=== PATIENT | female | born 1995 | race Two or more races ===

== ENCOUNTER → 2023-03-30 | Outpatient (CLI) | payer BC, SELFPAY ==
[2023-04-03 07:12] LABS: Chlamydia By Nucleic Acid AMP Negative (Negative); Gonococcus By Nucleic Acid AMP Negative (Negative)
[2023-04-04 14:19] LABS: HPV APTIMA, High Risk Negative (Negative)
== END | disposition home or self-care (01) ==
PROVIDERS: Referring Provider Obstetrics & Gynecology; Visit Provider Obstetrics & Gynecology
DX: Z34.90 Encounter for supervision of normal pregnancy, unspecified, unspecified trimester (principal); Z3A.00 Weeks of gestation of pregnancy not specified
CPT/HCPCS: 87086; 87088; 87491; 87591; 87624; 88175; G0145

== ENCOUNTER → 2023-04-12 | Outpatient (CLI) | payer BC, SELFPAY ==
[2023-04-12 09:51] LABS: Absolute Lymphocyte Count 2.03 X10^3/uL (0.83-4.51); Absolute Neutrophil Count 6.4 X10^3/uL (2.0-7.7); Basophil# 0.03 X10^3/uL; Basophil% 0.3 % (0-1); Eosinophil# 0.08 X10^3/uL; Eosinophils% 0.9 % (0-5); Hematocrit 40.1 % (37-47); Hemoglobin 12.6 g/dL (12.0-15.0); Lymphocyte # 2.03 X10^3/ul (0.83-4.51); Lymphocyte % 22.3 % (19-41); Mean Corp Hgb Conc 31.4 g/dL (32-36); Mean Corpuscular Volume 79.6 fL (81-99); Monocyte# 0.52 X10^3/uL; Monocyte% 5.7 % (0-10); NRBC Flagged by Analyzer 0 % (0-5); Neutrophil # 6.39 X10^3/uL (2.7-7.7); Neutrophil % 70.3 % (47-70); Platelet Count 208 K/mm3 (150-450); RBC Distribution Width CV 14.7 % (11.6-14.6); RBC Distribution Width SD 42.6 fl (35.1-43.9); Red Blood Count 5.04 M/mm3 (4.2-5.4); White Blood Count 9.1 K/mm3 (4.4-11.0)
[2023-04-12 10:03] LABS: Glucose Challenge Gest 1H 50g 169 mg/dL (70-140)
[2023-04-12 10:41] LABS: HIV - WCH Non-Reactive (Nonreactive); Hepatitis B Surface Antigen Non-Reactive (Nonreactive); Hepatitis C Antibody Non-Reactive (Nonreactive); NATERA MAILED SPECIMEN; Rubella IgG Reactive (Nonreactive); Syphilis Antibodies Non-reactive
== END | disposition home or self-care (01) ==
LOC: PAVLAB 09:22
PROVIDERS: Referring Provider Obstetrics & Gynecology; Visit Provider Obstetrics & Gynecology
DX: Z34.81 Encounter for supervision of other normal pregnancy, first trimester (principal)
CPT/HCPCS: 36415; 82950; 85025; 86703; 86762; 86780; 86803; 86850; 86900; 86901; 87340

== ENCOUNTER → 2023-04-19 | Outpatient (CLI) | payer BC, SELFPAY ==
[2023-04-19 08:49] LABS: Glucose GTT-Gestation. Fasting 98 mg/dL (<105)
[2023-04-19 09:03] LABS: Glucose GTT-Gestational 1 Hr 153 mg/dL (<190)
[2023-04-19 10:02] LABS: Glucose GTT-Gestational 2 Hr 182 mg/dL (<165)
[2023-04-19 10:49] LABS: Glucose GTT-Gestational 3 Hr 151 L (<145)
== END | disposition home or self-care (01) ==
PROVIDERS: Referring Provider Nurse Practitioner Women's Health; Visit Provider Nurse Practitioner Women's Health
DX: Z13.1 Encounter for screening for diabetes mellitus (principal)
CPT/HCPCS: 36415; 82951; 82952

== ENCOUNTER 2023-05-10 13:30 | Outpatient (RCR) | payer BC, SELFPAY | END 2023-05-11 23:59 | LOC: DC 13:30 | PROVIDERS: Referring Provider Nurse Practitioner Women's Health; Visit Provider Nurse Practitioner Women's Health | DX: Z71.3 Dietary counseling and surveillance (principal); O24.419 Gestational diabetes mellitus in pregnancy, unspecified control | CPT/HCPCS: 97802; 97803 ==

== ENCOUNTER 2023-05-25 14:07 | Outpatient (RCR) | payer BC, SELFPAY | END 2023-06-10 23:59 | LOC: DC 14:07 | PROVIDERS: Referring Provider Nurse Practitioner Women's Health; Visit Provider Nurse Practitioner Women's Health | DX: O24.419 Gestational diabetes mellitus in pregnancy, unspecified control (principal); O99.210 Obesity complicating pregnancy, unspecified trimester; E66.01 Morbid (severe) obesity due to excess calories | CPT/HCPCS: 97803 ==

== ENCOUNTER → 2023-08-16 | Outpatient (CLI) | payer OTHER, SELFPAY ==
[2023-08-16 11:32] LABS: Absolute Lymphocyte Count 1.89 X10^3/uL (0.83-4.51); Absolute Neutrophil Count 8.6 X10^3/uL (2.0-7.7); Basophil# 0.03 X10^3/uL; Basophil% 0.3 % (0-1); Eosinophil# 0.06 X10^3/uL; Eosinophils% 0.5 % (0-5); Hematocrit 36.3 % (37-47); Hemoglobin 11.3 g/dL (12.0-15.0); Lymphocyte # 1.89 X10^3/ul (0.83-4.51); Lymphocyte % 16.9 % (19-41); Mean Corp Hgb Conc 31.1 g/dL (32-36); Mean Corpuscular Hgb 24.6 pg (27.0-32.0); Mean Corpuscular Volume 78.9 fL (81-99); Mean Platelet Vol. 10.7 fl (6.2-12.0); Monocyte# 0.58 X10^3/uL; Monocyte% 5.2 % (0-10); NRBC Flagged by Analyzer 0 % (0-5); Neutrophil # 8.56 X10^3/uL (2.7-7.7); Neutrophil % 76.4 % (47-70); Platelet Count 187 K/mm3 (150-450); RBC Distribution Width CV 13.9 % (11.6-14.6); RBC Distribution Width SD 39.6 fl (35.1-43.9); White Blood Count 11.2 K/mm3 (4.4-11.0)
[2023-08-16 12:17] LABS: HIV - WCH Non-Reactive (Nonreactive); Syphilis Antibodies Non-reactive
== END | disposition home or self-care (01) ==
PROVIDERS: Referring Provider Obstetrics & Gynecology; Visit Provider Obstetrics & Gynecology
DX: O09.90 Supervision of high risk pregnancy, unspecified, unspecified trimester (principal); Z3A.00 Weeks of gestation of pregnancy not specified
CPT/HCPCS: 36415; 85025; 86703; 86780

== ENCOUNTER → 2023-09-13 | Outpatient (CLI) | payer OTHER, MEDICAID, SELFPAY ==
[2023-09-13 14:19] LABS: Protein, Urine (Random) 29.5 mg/dL (<11.9); Protein:Creat Ratio 238 mg/g CRE (0-200)
[2023-09-13 14:42] LABS: Absolute Lymphocyte Count 1.96 X10^3/uL (0.83-4.51); Absolute Neutrophil Count 8.6 X10^3/uL (2.0-7.7); Basophil# 0.04 X10^3/uL; Basophil% 0.3 % (0-1); Eosinophil# 0.07 X10^3/uL; Eosinophils% 0.6 % (0-5); Hematocrit 34.8 % (37-47); Hemoglobin 10.4 g/dL (12.0-15.0); Lymphocyte # 1.96 X10^3/ul (0.83-4.51); Lymphocyte % 17.1 % (19-41); Mean Corp Hgb Conc 29.9 g/dL (32-36); Mean Corpuscular Hgb 23.1 pg (27.0-32.0); Mean Corpuscular Volume 77.3 fL (81-99); Mean Platelet Vol. 10.9 fl (6.2-12.0); Monocyte# 0.68 X10^3/uL; Monocyte% 5.9 % (0-10); NRBC Flagged by Analyzer 0 % (0-5); Neutrophil # 8.62 X10^3/uL (2.7-7.7); Neutrophil % 75.1 % (47-70); Platelet Count 178 K/mm3 (150-450); RBC Distribution Width CV 14.1 % (11.6-14.6); RBC Distribution Width SD 39.7 fl (35.1-43.9); White Blood Count 11.5 K/mm3 (4.4-11.0)
[2023-09-13 14:57] LABS: ALB/GLOB Ratio 0.6 RATIO (0.9-2.4); AST(SGOT) 9 U/L (15-37); Alanine Aminotransfer ALT/SGPT 13 U/L (13-56); Albumin, Serum 2.5 g/dL (3.2-5.0); Alkaline Phosphatase 113 U/L (45-117); Anion Gap 9 (5-15); BUN 8 mg/dL (7-18); BUN/Creat Ratio 13.3 RATIO (10-20); Calcium,Total 8.5 mg/dL (8.5-10.1); Chloride 108 mmol/L (98-107); EST Glomerular Filtration Rate 124 mL/min (>60); Est Glom Filt Rate - Afr Amer 150 mL/min (>60); Globulin 4.1 g/dL (2.2-4.2); Glucose 119 mg/dL (74-106); Potassium 4.1 mmol/L (3.5-5.1); Protein, Total 6.6 g/dL (6.4-8.2); Sodium Level 141 mmol/L (136-145)
== END | disposition home or self-care (01) ==
PROVIDERS: Referring Provider Nurse Practitioner Women's Health; Visit Provider Nurse Practitioner Women's Health
DX: Z34.90 Encounter for supervision of normal pregnancy, unspecified, unspecified trimester (principal)
CPT/HCPCS: 36415; 80053; 82570; 84156; 85025

== ENCOUNTER → 2023-09-18 | Outpatient (CLI) | payer MEDICAID, SELFPAY ==
--- NOTE | 2023-09-18 09:43 | US_ITS ---
EXAM: US SECOND OR THIRD TRIMESTER , TRANSABDOMINAL CLINICAL INDICATION: gestational diabetes -- polyhydramnios at 30 weeks TECHNIQUE: Transabdominal obstetrical ultrasound of the maternal pelvis and a second or third trimester with image documentation. COMPARISON: No relevant prior studies available. FINDINGS: FETUS: Single fetus. HEART RATE: cardiac rate is 136 bpm. PRESENTATION: Transverse lie and variable presentation. PLACENTA: Anterior placenta. No placenta previa. No abruption. AMNIOTIC FLUID: Amniotic fluid index is 14 cm. BIOMETRICS GESTATIONAL AGE: Estimated gestational age by measurements is 34 weeks 4 days. Clinical gestational age is 32 weeks 5 days. SHIVAM: Clinical SHIVAM is November 08, 2023. EFW: Estimated weight is 2451 g. BPD: Biparietal diameter is 8.9 cm. HC: Head circumference is 31.4 cm. AC: Abdominal circumference is 31.0 cm. FL: Femur length is 6.2 cm. MATERNAL: UTERUS: Normal. No myometrial mass. CERVIX: Cervix appears closed measuring 5 cm in length. ADNEXA: Normal. No adnexal masses. FREE FLUID: None. US/OB Limited With Biometrics IMPRESSION: Single live third trimester intrauterine gestation. Electronically Signed: Poncho Ruiz MD at 14:20 EST ,
--- OUTSIDE RECORDS SUMMARY | 2023-09-18 10:11 | XMS RPT_ITS | CCD ---
Author Name Unknown Address [address] [place] [address] Organization [facility] Care Team Providers Care Nursery Attendant Name Role Phone Unavailable Primary Care Provider UnavailBRIGIDA Roman Attending Unavailable SIVAKUMAR BENNETT Referring Unavailable NO PRIMARY CARE, Primary Care Unavailable BRIGIDA PERALTA Attending Unavailable DAKSHA PETER Referring Unavailable NO PRIMARY CARE, Primary Care Unavailable GRAY PIERRE Referring Unavailabl e NO PRIMARY CARE, Primary Care Unavailable BRIGIDA PERALTA Attending Unavailable MADHAVI DICKSON Referring Unavailable Medications Current Medications Medication Drug Class(es) Dates Sig (Normalized) Sig (Original) amoxicillin 875 mg / clavulanate 125 mg oral tablet (2 sources) Penicillin-class Antibacterial Start: 07-28-2022 End: 08-04-2022 take 1 tablet by mouth twice daily amoxicillin-clav ulanic acid (AUGMENTIN) 875-125 mg per tablet Take 1 tablet by mouth twice daily for 7 days. 14 tablet 0 07/28/2022 08/04/2022 Active Completed/Discontinued Medications Medication Drug Class(es) Dates Sig (Normalized) Sig (Original) amoxicillin 875 mg oral tablet (1 source) Penicillin-class Antibacterial Start: 03-14-2022 End: 03-20-2022 take 1 tablet by mouth twice daily amoxicillin (AMOXIL) 875 mg tablet Indications: Acute otitis media, left Take 1 tablet by mouth twice daily for 7 days. 14 tablet 0 03/14/2022 03/20/2022 Discontinued (Course of therapy completed) Problems Problem Classification Problem Date Documented Da te Episodic/Chronic Inflammation; infection of eye (except that caused by tuberculosis or sexually transmitteddisease) (1 source) Conjunctivitis; Translations: [Other mucopurulent conjunctivitis, left eye] Episodic Other upper respiratory infections (2 sources) Sore throat symptom; Translations: [Acute pharyngitis, unspecified] Episodic Otitis media and related conditions (2 sources) Acute left otitis media; Translations: [Otitis media, unspecified, left ear] Episodic Results Test Name Value Interpretation Reference Range Facil ity Vital Signs Date Time Vital Sign Value Performing Clinician Masood alba 07-28-2022 08:30-0500 Body temperature 98.6 [degF] Radha Puneet CHAIN REPAIRER.BUILDING MOVER Work Phone: [facility] 07-28-2022 08:30-0500 Body weight 133.18 kg Radha Puneet CHAIN REPAIRER.BUILDING MOVER Work Phone: [facility] 07-28-2022 08:30-0500 Diastolic blood pressure 82 mm[Hg] Radha Puneet CHAIN REPAIRER.BUILDING MOVER Work Phone: [facility] 07-28-2022 08:30-0500 Heart rate 112 /min Radha Puneet CHAIN REPAIRER.BUILDING MOVER Work Phone: [facility] 07-28-2022 08:30-0500 Respiratory rate 18 /min Radha Puneet CHAIN REPAIRER.BUILDING MOVER Work Phone: [facility] 07-28-2022 08:30-0500 SaO2% (BldA) [Mass fraction] 97 % Radha Puneet CHAIN REPAIRER.BUILDING MOVER Work Phone: [facility] 07-28-2022 08:30-0500 Systolic blood pressure 130 mm[Hg] Radha Puneet CHAIN REPAIRER.BUILDING MOVER Work Phone: [facility] 03-20-2022 12:23-0400 Body temperature 96.6 [degF] Axel Milton CHAIN REPAIRER.BUILDING MOVER Work Phone: [facility] 03-20-2022 12:23-0400 Body weight 130.73 kg Axel Milton CHAIN REPAIRER.BUILDING MOVER Work Phone: [facility] 03-20-2022 12:23-0400 Diastolic blood pressure 84 mm[Hg] Axel Pendelda CHAIN REPAIRER.BUILDING MOVER Work Phone: [facility] 03-20-2022 12:23-0400 Heart rate 110 /min Axel Roes CHAIN REPAIRER.BUILDING MOVER Work Phone: [facility] 03-20-2022 12:23-0400 Respiratory rate 20 /min Axel Rose CHAIN REPAIRER.BUILDING MOVER Work Phone: [facility] 03-20-2022 12:23-0400 SaO2% (BldA) [Mass fraction] 97 % Axel Rose CHAIN REPAIRER.BUILDING MOVER Work Phone: [facility] 03-20-2022 12:23-0400 Systolic blood pressure 118 mm[Hg] Axel Rose CHAIN REPAIRER.BUILDING MOVER Work Phone: [facility] 03-12-2022 10:33-0400 Body temperature 98.49 [degF] Lisa Blanco APRN.BUILDING MOVER Work Phone: [facility] 03-12-2022 10:33-0400 Body weight 130.18 kg Lisa Blanco APRN.BUILDING MOVER Work Phone: [facility] 03-12-2022 10:33-0400 Diastolic blood pressure 80 mm[Hg] Lisa Blanco APRN.BUILDING MOVER Work Phone: [facility] 03-12-2022 10:33-0400 Heart rate 104 /min Lisa Blanco APRN.BUILDING MOVER Work Phone: [facility] 03-12-2022 10:33-0400 Respiratory rate 18 /min Lisa Blanco APRN.BUILDING MOVER Work Phone: [facility] 03-12-2022 10:33-0400 SaO2% (BldA) [Mass fraction] 97 % Lisa Blanco APRN.BUILDING MOVER Work Phone: [facility] 03-12-2022 10:33-0400 Systolic blood pressure 122 mm[Hg] Lisa Blanco APRN.BUILDING MOVER Work Phone: [facility] Encounters Encounter Date Encounter Type Care Provider Facility Start: 09-16-2023 End: 09-16-2023 ambulatory [facility] Facility:[facility] Start: 08-19-2023 End: 12-09-2023 ambulatory [facility] Facility:[facility] Start: 08-15-2023 End: 08-15-2023 ambulatory GRAY PIERRE [facility] Start: 07-03-2023 End: 07-03-2023 ambulatory BRIGIDA [facility] Start: 06-13-2023 End: 06-13-2023 ambulatory [facility] Start: 07-28-2022 End: 07-28-2022 Patient encounter procedure Radha Shannonnoe FELICIANO.BUILDING MOVER Work Phone: [facility] Procedures Date Procedure Procedure Detail Performing Clinician Start: 03-12-2022 STREP A MOLECULAR (POC) Lisa Blanco APRN.BUILDING MOVER Work Phone: Plan of Treatment Date Care Activity Detail Author Start: 05-12-2022 Influenza vaccination INFLUENZA (#1) [facility] Start: 09-11-2021 DEPRESSION ASSESSMENT DEPRESSION ASS ESSMENT [facility] Start: 2014 PAP TESTING PAP TESTING [facility] Start: 02-06-2012 Urine microalbumin profile DTAP,TDAP ,TD (1 - Tdap) [facility] Start: 2011 HEPATITIS C SCREENING HEPATITIS C SC REENING [facility] Start: 2011 HIV SCREENING HIV SCREENING [facility] Start: 2005 Adult depression scr eening assessment DEPRESSION SCREENING [facility] Start: 1993 COVID-19 VACCINE (#1) COVID-19 VACCI NE (#1) [facility] Start: 1993 HEPATITIS B (1 of 3 - 3-dose series) HEPATITIS B (1 of 3 - 3-dose series) [facility] Payers Date Payer Category Payer Private Health Insurance [id number] 2022 Unknown [employer] [facility] [id number] 2022-Present [phone] [id number] [place] [id number] [facility] [id number] 2022 Unknown [employer] [facility] [id number] 2022-Present [phone] [id number] [place] [address] PPO [id number] 1993 Unknown [id number] 1993 Unknown [id number] 1993 Unknown [id number] Unknown [id number] Social History Date Type Detail Facility Start: 03-12-2022 End: 07-28-2022 Tobacco smoking status NHIS Never smoked tobacco [facility] Start: 03-12-2022 End: 07-28-2022 Tobacco use and exposure Smokeless tobacco non-user [facility] Start: 1993 Sex Assigned At Not on file C [facility] Start: 03-10-2022 End: 07-28-2022 Exposure to SARS-CoV-2 (event) Not sure [facility] Work Phone: Clinical Notes 03-12-2022 to 09-16-2023 Radha Teixeira APRN.BUILDING MOVER - 07/28/2022 9:02 AM ESTPatient InstructionsPatient InstructionsAxel Rose APRN.CNP - 03/20/2022 12:27 PM EDTPatient Instructions Note Date & Type Note Facility 09-16-2023 Note HNO ID: [id number] Author: LISA BLANCO APRN.BUILDING MOVER Service: ? Author Type: Nurse Practitioner Type: Progress Notes Filed: 09/16/2023 15:05 Note Text: Subjective Patient here with complaints of left-sided lower abdomen pain and tenderness and redness. Patient is 32 weeks . Patient said it started 5 days ago seems to be getting worse. Patient denies any fever chills nausea vomiting. The history is provided by the patient. No specialized language instructor was used. Rash Review of Systems Constitutional: Negative. Skin: Positive for rash. Objective Physical Exam Constitutional: Appearance: Normal appearance. Pulmonary: Effort: Pulmonary effort is normal. Abdominal: Comments: Quarter sized raised fluctuant area. Below that appears to be 4 cm x 4 cm firm area. Neurological: Mental Status: She is alert. No past medical history on file. No past surgical history on file. ALLERGIES Patient has no known allergies. MEDICATIONS cephALEXin (KEFLEX) 500 mg capsule Take 1 capsule by mouth four times daily for 5 days. Lactobacillus acidophilus (FLORAJEN ACIDOPHILUS) 20 billion cell cap Take 460 mg by mouth once daily. (Patient not taking: Reported on 07/28/2022) No family history on file. Social History Tobacco Use Smoking status: Never Smokeless tobacco: Never Substance Use Topics Drug use: Never ASSESSMENT/PLAN: 1. Skin infection - ICD9: 686.9, ICD10: L08.9 - CEPHALEXIN 500 MG CAPSULE She was educated about proper use of medication and supportive therapies. Patient was educated about red flag symptoms and to go to the emergency room. Patient will call her PROJECT MANAGEMENT CONSULTANT and let them know what is going on for further follow-up. Lisa Blanco APRN.BUILDING MOVER [facility] 08-19-2023 Note HNO ID: [id number] Author: Axel Rose APRN.DELMAR Service: ? Author Type: Nurse Practitioner Type: Progress Notes Filed: 08/19/2023 1:30 PM Note Text: Subjective HPI Nontoxic-appearing 28-week female presents urgent care chief complaint headache scratchy throat nasal congestion ear pain. Most prominent symptom today is ear pain. No known sick contacts recently. No OTC medication use. History of ear infections. Denies any fever body aches chills productive cough chest pain shortness of breath pleuritic pain hemoptysis nausea vomiting abdominal pain change in bowel or bladder habits. Past medical history prescription medication use and allergies reviewed. No vaginal leakage or decreased movement. .Patient presents with: Ear Problem: With SIMMONS and scratchy throat0 History reviewed. No pertinent past medical history. History reviewed. No pertinent surgical history. ALLERGIES Patient has no known allergies. MEDICATIONS Lactobacillus acidophilus (FLORAJEN ACIDOPHILUS) 20 billion cell cap Take 460 mg by mouth once daily. (Patient not taking: Reported on 07/28/2022) History reviewed. No pertinent family history. Social History Tobacco Use Smoking status: Never Smokeless tobacco: Never Substance Use Topics Drug use: Never BP 118/78 Pulse 113 Temp 37.2 ?C (99 ?F) Resp 16 Wt 128.4 kg (283 lb) LMP 07/16/2022 (Exact Date) SpO2 99% Review of Systems Constitutional: Negative for chills, fever and malaise/fatigue. HENT: Positive for ear pain and sore throat. Negative for congestion, ear discharge and sinus pain. Eyes: Negative for blurred vision, pain, discharge and redness. Respiratory: Negative for cough, hemoptysis, sputum production, shortness of breath, wheezing and stridor. Cardiovascular: Negative for chest pain. Gastrointestinal: Negative for abdominal pain, diarrhea, nausea and vomiting. Musculoskeletal: Negative for myalgias. Skin: Negative for itching and rash. Neurological: Positive for headaches. Negative for dizziness. Objective Physical Exam Constitutional: General: She is not in acute distress. Appearance: She is not diaphoretic. HENT: Head: Normocephalic. Jaw: No trismus, tenderness, swelling or pain on movement. Right Ear: Tympanic membrane, ear canal and external ear normal. Left Ear: Tympanic membrane, ear canal and external ear normal. Nose: Congestion present. Mouth/Throat: Mouth: Mucous membranes are moist. Pharynx: Oropharynx is clear. Uvula midline. No pharyngeal swelling, oropharyngeal exudate, posterior oropharyngeal erythema or uvula swelling. Eyes: Conjunctiva/sclera: Conjunctivae normal. Pupils: Pupils are equal, round, and reactive to light. Cardiovascular: Rate and Rhythm: Normal rate and regular rhythm. Heart sounds: Normal heart sounds. Pulmonary: Effort: Pulmonary effort is normal. No tachypnea, accessory muscle usage or respiratory distress. Breath sounds: Normal breath sounds. No stridor. No wheezing, rhonchi or rales. Abdominal: General: There is no distension. Palpations: Abdomen is soft. Tenderness: There is no abdominal tenderness. There is no guarding or rebound. Musculoskeletal: Cervical back: Normal range of motion and neck supple. No edema, erythema, rigidity or tenderness. No pain with movement. Normal range of motion. Lymphadenopathy: Cervical: No cervical adenopathy. Skin: General: Skin is warm and dry. Neurological: Mental Status: She is alert and oriented to person, place, and time. ASSESSMENT/PLAN: 1. Otalgia of both ears - ICD9: 388.70, ICD10: H92.03 Diagnosis otalgia. Suspicious for viral etiology. No antibiotics today. Patient was educated on supportive therapies. Patient will follow up with primary care provider as needed. Patient was instructed to immediately proceed to emergency room for any new, worsening, or symptoms lasting longer than anticipated. The patient's clinical presentation is otherwise unremarkable at this time. Based on exam and clinical finding, the patient is stable for discharge. Plan of care was discussed with patient. Patient verbalizes understanding and agrees to plan of care. This note was generated using [employer] software. It may contain errors in wording, punctuation, or spelling. Axel Rose APRN.[facility] 07-28-2022 History of Presen t illness Narrative Subjective The history is provided by the patient. No specialized language instructor was used. HPI Dianne Ortega is a 27 year old female who presents today for CC of left ear pain that started in past 24 hours and is worsening. She also for the past 1.5 weeks noted congestion, cough, running nose, sinus pressure. She has used otc cold products and nasal spray without relief. Ear infection 3 months ago. BP 130/82 Pulse 112 Temp 37 C (98.6 F) Resp 18 Wt 133.2 kg (293 lb 9.6 oz) LMP 07/16/2022 (Exact Date) SpO2 97% Social History Tobacco Use Smoking status: Never Smokeless tobacco: Never Substance Use Topics Drug use: Never History reviewed. No pertinent past medical history. I have confirmed and edited as necessary, the [facility] Review of Systems Constitutional: Negative for chills, fever and malaise/fatigue. HENT: Positive for congestion, ear pain and sinus pain. Negative for sore throat. Respiratory: Positive for cough. Negative for sputum production, shortness of breath and wheezing. Cardiovascular: Negative for chest pain. Gastrointestinal: Negative for abdominal pain, diarrhea, nausea and vomiting. Musculoskeletal: Negative for myalgias. Neurological: Negative for headaches. Objective Physical Exam Vitals and nursing note reviewed. HENT: Head: Normocephalic and atraumatic. Right Ear: Tympanic membrane, ear canal and external ear normal. Left Ear: Ear canal and external ear normal. A middle ear effusion (purulent) is present. Tympanic membrane is erythematous and bulging. Nose: Mucosal edema, congestion and rhinorrhea present. Right Sinus: No maxillary sinus tenderness or frontal sinus tenderness. Left Sinus: No maxillary sinus tenderness or frontal sinus tenderness. Mouth/Throat: Pharynx: Uvula midline. No oropharyngeal exudate or posterior oropharyngeal erythema. Cardiovascular: Rate and Rhythm: Normal rate and regular rhythm. Heart sounds: Normal heart sounds. Pulmonary: Effort: Pulmonary effort is normal. Breath sounds: Normal breath sounds. Lymphadenopathy: Head: Right side of head: No submental, submandibular or tonsillar adenopathy. Left side of head: No submental, submandibular or tonsillar adenopathy. Cervical: No cervical adenopathy. Skin: General: Skin is warm and dry. Neurological: Mental Status: She is alert. Psychiatric: Mood and Affect: Affect normal. ASSESSMENT/PLAN: 1. Acute otitis media, left - ICD9: 382.9, ICD10: H66.92 (primary diagnosis) - Will begin treatment with Augmentin 875 mg PO BID for 7 days - Supportive care with plenty of fluids, rest, and analgesia prn. - Follow up in one week if symptoms persist or worsen. 2. URI with cough and congestion - ICD9: 465.9, ICD10: J06.9 - Discussed viral etiology and rationale for treatment. - Symptomatic treatment with prn analgesia - Supportive care with fluids and rest - Mucinex DM, flonase Diagnosis and treatment plan were discussed and questions were answered to the patient's satisfaction. Pt acknowledged understanding of concepts and follow up plan. Specific signs and symptoms that would indicate the need for higher level of care were discussed in detail warranting prompt ER evaluation. Radha Teixeira APRN.CNP documented in this encounter [facility] 07-28-2022 Instructions Radha Teixeira APRN.CNP - 07/28/2022 8:58 AM EST Rest, increase water intake Motrin or Tylenol as needed for fever or pain. Salt water gargles, chloraseptic spray or lozenges as needed for sore throat. Warm beverages, honey. Nasal saline spray as needed Cool mist humidifier at night Mucinex DM - as directed on package Flonase or Nasonex 2 sprays in each nostril once a day If nasal spray is Oxymetazoline discontinue use Augmentin as ordered Probiotic: Abel Haynes Align. Do not take with antibiotic, make sure 2 hours between. documented in this encounter [facility] 03-20-2022 Instructions Axel Rose APRN.CNP - 03/20/2022 12:43 PM EDT OTITIS MEDIA GENERAL INFORMATION: Otitis media is an infection of the middle ear. The middle ear sits behind the eardrum. This infection may be caused by a virus or bacteria and often follows a cold. Children often have repeat ear infections. Otitis media is not contagious. INSTRUCTIONS: 1. An antibiotic has been prescribed. It should be taken exactly as prescribed. Do not stop the medicine even if the symptoms go away. 2. Cyno-yok-nltismd pain medication may be taken or other pain medication as prescribed by the doctor. 3. Nothing should be placed in the ear unless instructed by your doctor. 4. The patient may return to school/daycare or work when the temperature is normal (98.6 F or 37 C). 5. The patient should not swim while the ear is infected. CONTACT YOUR DOCTOR IF YOU OR YOUR CHILD: 1. Does not feel better within 36 hours. 2. Develops a temperature over 102E F (39E C). 3. Starts vomiting or has diarrhea. 4. Develops drainage from the affected ear. 5. Has any new problem that may be related to the medicine prescribed. RETURN TO THE ED IF: 1. You or your child has a severe headache or pain around the ear. 2. You or your child notice swelling around the ear. 3. You or your child has a seizure (convulsion), twitching of the facial muscles, or passes out. 4. You or your child is dizzy, has a stiff neck, or cannot walk or talk normally. 5. Your child becomes more irritable or listless (not interested in his or her surroundings, does not get soothed by you holding him or her). documented in this encounter [facility] 03-20-2022 History of Presen t illness Narrative Subjective HPI Nontoxic-appearing female presents urgent care chief complaint otitis media left ear. Duration of symptoms 9 days. Associated symptoms listed above. States was seen here 6 days ago. Placed on amoxicillin. Presents today due to pain staying persistent. States URI symptoms are improving. Cough is still present but not as pronounced. States her was sick with similar signs and symptoms. He is well currently. Denies any other OTC medications. Denies any significant pain. Rates pain 6 out of 10 in ear. Denies any fevers nausea vomiting abdominal pain body aches chills productive cough chest pain shortness of breath or change in bowel or bladder habits. Past medical history prescription medication use allergies reviewed. .Patient presents with: Ear Pain: L ear pain, SIMMONS, cough, ST x9 days, seen 03/14 History reviewed. No pertinent past medical history. History reviewed. No pertinent surgical history. ALLERGIES Patient has no known allergies. MEDICATIONS amoxicillin (AMOXIL) 875 mg tablet Take 1 tablet by mouth twice daily for 7 days. History reviewed. No pertinent family history. Social History Tobacco Use Smoking status: Never Smoker Smokeless tobacco: Never Used Substance Use Topics Alcohol use: Not on file Drug use: Never BP 118/84 Pulse 110 Temp (!) 35.9 C (96.6 F) Resp 20 Wt 130.7 kg (288 lb 3.2 oz) SpO2 97% Hr 87 Review of Systems Constitutional: Negative for chills, fever and malaise/fatigue. HENT: Positive for congestion, ear pain and sinus pain. Negative for ear discharge and sore throat. Eyes: Negative for blurred vision, pain, discharge and redness. Respiratory: Positive for cough. Negative for hemoptysis, sputum production, shortness of breath, wheezing and stridor. Cardiovascular: Negative for chest pain. Gastrointestinal: Negative for abdominal pain, diarrhea, nausea and vomiting. Musculoskeletal: Negative for myalgias. Skin: Negative for itching and rash. Neurological: Positive for headaches. Negative for dizziness. Objective Physical Exam Vitals and nursing note reviewed. Constitutional: General: She is not in acute distress. Appearance: She is not diaphoretic. HENT: Head: Normocephalic and atraumatic. Jaw: No trismus, tenderness, swelling or pain on movement. Right Ear: Hearing, tympanic membrane, ear canal and external ear normal. No decreased hearing noted. No drainage, swelling or tenderness. Tympanic membrane is not perforated, erythematous or bulging. Left Ear: Hearing, ear canal and external ear normal. No decreased hearing noted. No drainage, swelling or tenderness. Tympanic membrane is erythematous and bulging. Tympanic membrane is not perforated. Ears: Comments: No otorrhea. No tragal tenderness. No external erythema edema noted. Mouth/Throat: Lips: [place]. Mouth: Mucous membranes are moist. Pharynx: Oropharynx is clear. Uvula midline. No pharyngeal swelling, oropharyngeal exudate, posterior oropharyngeal erythema or uvula swelling. Eyes: General: Right eye: No discharge. Left eye: No discharge. Conjunctiva/sclera: Conjunctivae normal. Pupils: Pupils are equal, round, and reactive to light. Cardiovascular: Rate and Rhythm: Normal rate and regular rhythm. Heart sounds: Normal heart sounds. Pulmonary: Effort: Pulmonary effort is normal. No tachypnea, accessory muscle usage or respiratory distress. Breath sounds: Normal breath sounds. No stridor. No wheezing, rhonchi or rales. Abdominal: Palpations: Abdomen is soft. Tenderness: There is no abdominal tenderness. Musculoskeletal: General: No tenderness. Normal range of motion. Cervical back: Normal range of motion and neck supple. No rigidity or tenderness. Lymphadenopathy: Head: Right side of head: No submental, submandibular, tonsillar, preauricular, posterior auricular or occipital adenopathy. Left side of head: No submental, submandibular, tonsillar, preauricular, posterior auricular or occipital adenopathy. Cervical: No cervical adenopathy. Right cervical: No superficial or posterior cervical adenopathy. Left cervical: No superficial or posterior cervical adenopathy. Skin: General: Skin is warm and dry. Findings: No rash. Neurological: Mental Status: She is alert and oriented to person, place, and time. ASSESSMENT/PLAN: 1. Acute otitis media, left - ICD9: 382.9, ICD10: H66.92 Patient diagnosed with otitis media of left ear. This is a recurrent infection. Will not take last day of amoxicillin. Patient will be transferred to [facility]. We will follow-up with the ENT or PCP for reevaluation. Patient was educated on supportive therapies. Patient will follow up with primary care provider as needed. Patient was instructed to immediately proceed to emergency room for any new, worsening, or symptoms lasting longer than anticipated. The patient's clinical presentation is otherwise unremarkable at this time. Based on exam and clinical finding, the patient is stable for discharge. Plan of care was discussed with patient. Patient verbalizes understanding and agrees to plan of care. This note was generated using [employer] software. It may contain errors in wording, punctuation, or spelling. Axel Rose APRN.DELMAR documented in this encounter [facility] 03-12-2022 Instructions Lisa Blanco APRN.DELMAR - 03/12/2022 10:59 AM EDT CONJUNCTIVITIS GENERAL INFORMATION: Conjunctivitis is also known as pink eye. It is an irritation of the underside of the eyelid and the white part of the eye. Conjunctivitis can be caused by infection, chemical irritation, or allergy. If infectious, it is very contagious. INSTRUCTIONS: The doctor has prescribed antibiotic drops or ointment. Use them as prescribed. Do not touch the dropper to the eye. Throw out the medication after completing treatment. If the doctor only prescribed the medication to be placed in one eye, and the other eye starts to bother you with the same symptoms, you may treat it in the same fashion. To ease discomfort, apply a warm or cool clean washcloth to your eye several times a day for 10 to 20 minutes. Gently wipe away discharge from the eyes with tissues. Wash your hands often with soap and use paper towels to dry them. Do not share towels, washcloths, or pillows. This could spread infection. Do not use eye make-up until the infection has resolved. Keep contact lenses out of eyes until the irritation is gone. Discard any eye make-up which you may have contaminated before the infection was diagnosed, and any eye make-up older than one year. Children should not return to school or daycare until the eye is no longer pink. Do not drive or operate machinery if your vision is blurred. Wear sunglasses if your eyes are sensitive to the light. CONTACT YOUR DOCTOR IF YOU OR YOUR CHILD NOTICE: *The eye is still pink 3 days after starting treatment with medicine. *Pain in the eye increases. *The redness is spreading. *Vision becomes blurred. *You have a temperature over 100.5 F (38 C). documented in this encounter [facility] 03-12-2022 History of Presen t illness Narrative CC: Patient presents with: Eye Problem: left, red and swollen, started yesterday. Also has cough and sore throat x 1 day Woke up with left eye matted shut and has redness and itching. HPI: Dianne Ortega is a 27 year old female who presents to the office with complaint of head congestion and sore throat for the past day. Symptoms are worsening Associated symptoms includes eye redness and itching. Denies fever, nausea, vomiting and diarrhea. Treatments tried include nothing so far. with no relief of symptoms. Sick contacts: unknown. History of asthma, frequent episodes of bronchitis, chronic bronchitis, bronchiectasis or COPD: No Smoker: No Seasonal/environmental allergies: No The ROS is otherwise negative. The patient's pmh, medications, allergies, and past visits are reviewed. PHYSICAL EXAM: BP 122/80 Pulse 104 Temp 36.9 C (98.5 F) Resp 18 Wt 130.2 kg (287 lb) SpO2 97% General appearance: alert, cooperative, pleasant, in no acute distress Head: Normocephalic Eyes: EOM's intact, conjunctiva pink and moist, no icterus, sclera white, non-injected Ears: Right ear: External ear/canal- Normal, TM - clear with good landmarks. Left ear: External ear/canal- Normal, TM - clear with good landmarks Oropharynx:moderate erythema, without exudates present Heart: Negative. RRR without obvious murmur, gallop, or rubs. No ectopy. Lungs: clear to auscultation, without rales or wheeze, good air exchange No past medical history on file. No past surgical history on file. ALLERGIES Patient has no known allergies. MEDICATIONS trimethoprim-polymyxin (POLYTRIM) 10,000 unit- 1 mg/mL ophthalmic solution Use 1 Drop in the left eye every 4 hours for 7 days. No family history on file. Social History Tobacco Use Smoking status: Never Smoker Smokeless tobacco: Never Used Substance Use Topics Alcohol use: Not on file Drug use: Never ASSESSMENT/PLAN: 1. Sore throat - ICD9: 462, ICD10: J02.9 (primary diagnosis) - STREP A MOLECULAR (POC) - negative 2. [place] eye disease of left eye - ICD9: 372.03, ICD10: H10.022 polytrim for a week Prescription instructions reviewed with patient as applicable. Potential red flag symptoms discussed with the patient. Reviewed appropriate action plan to take if red flag symptoms occur. Patient agreeable to treatment plan. Lisa Blanco APRN.DELMAR documented in this encounter [facility] Acute otitis media, left- Primary Unspecified otitis media [facility] Diagnosis Acute otitis media, left- Primary Unspecified otitis media URI with cough and congestion documented in this encounter [facility] Summary Purpose Family History No Family History Records FoundNo Family History Records Found Advance Directives No Advanced Directives Records FoundNo Advanced Directives Records Found Additional Source Comments Source Comments (unrecognize d section and content) In the event this informatio n is protected by the Federal Confidentiality of Alcohol and Drug Abuse Patient Records regulations: The Federal rules restrict any use of the information to criminally investigate or prosecute any alcohol or drug abuse patient.[facility] the event this information is protected by the Federal Confidentiality of Alcohol and Drug Abuse Patient Records regulations: The Federal rules restrict any use of the information to criminally investigate or prosecute any alcohol or drug abuse patient.[facility] the event this information is protected by the Federal Confidentiality of Alcohol and Drug Abuse Patient Records regulations: The Federal rules restrict any use of the information to criminally investigate or prosecute any alcohol or drug abuse patient.[facility] Reason for Visit (unrecogniz ed section and content) Reason Comments Ear Pain L ear pain, SIMMONS, coug h, ST x9 days, seen 7/4 Reason Comments Cough Pt reported nasal co ngestion, Simmons, bilateral ear pain, decreased hearing x7 days. INFORMATION SOURCE (unrecogn ized section and content) DATE CREATED AUTHOR AUTHOR'S ORGANIZ ATION 09/17/2023 [facility] FOR RECORDS PERTAINING TO PATIENTS WHO ARE OR HAVE BEEN ENROLLED IN A CHEMICAL DEPENDENCY/SUBSTANCEABUSE PROGRAM, SOME INFORMATION MAY BE OMITTED. This clinical summary was aggregated from multiple sources. Caution should be exercised in using it in the provision of clinical care. This summary normalizes information from multiple sources, and as a consequence, information in this document may materially change the coding, format and clinical context of patient data. In addition, data may be omitted in some cases. CLINICAL DECISIONS SHOULD BE BASED ON THE PRIMARY CLINICAL RECORDS. [facility]. provides no warranty or guarantee of the accuracy or completeness of information in this document.
== END | disposition home or self-care (01) ==
LOC: US 09:43
PROVIDERS: Referring Provider Obstetrics & Gynecology; Visit Provider Obstetrics & Gynecology
DX: O40.3XX0 Polyhydramnios, third trimester, not applicable or unspecified (principal); O24.313 Unspecified pre-existing diabetes mellitus in pregnancy, third trimester; Z3A.30 30 weeks gestation of pregnancy
CPT/HCPCS: 76816

== ENCOUNTER 2023-10-03 17:55 | Outpatient (CLI) | payer MEDICAID, SELFPAY ==
--- OUTSIDE RECORDS SUMMARY | 2023-10-03 18:03 | XMS RPT_ITS | CCD ---
Author Name Unknown Address [address] [place] [address] Organization [facility] Care Team Providers Care Board Certified Behavioral Analyst Name Role Phone Unavailable Primary Care Provider UnavailMADHAVI Ward Referring Unavailable BRIGIDA PERALTA Attending Unavailable SIVAKUMAR BENNETT Referring Unavailable NO PRIMARY CARE, Primary Care Unavailable BRIGIDA PERALTA Attending Unavailable DAKSHA PETER Referring Unavailable NO PRIMARY CARE, Primary Care Unavailable GRAY PIERRE Referring Unavailabl e NO PRIMARY CARE, Primary Care Unavailable BRIGIDA PERALTA Attending Unavailable Medications Current Medications Medication Drug Class(es) [...] 08:30-0500 Body temperature 98.6 [degF] Radha Puneet TAILOR WOMEN'S GARMENT ALTERATION.ROLL PRESS OPERATOR Work Phone: [facility] 07-28-2022 08:30-0500 Body weight 133.18 kg Radha Teixeira TAILOR WOMEN'[employer]ARMENT ALTERATION.ROLL PRESS OPERATOR Work Phone: [facility] 07-28-2022 08:30-0500 Diastolic blood pressure 82 mm[Hg] Radha Puneet TAILOR WOMEN'S GARMENT ALTERATION.ROLL PRESS OPERATOR Work Phone: [facility] 07-28-2022 08:30-0500 Heart rate 112 /min Radha Teixeira TAILOR WOMEN'S GARMENT ALTERATION.ROLL PRESS OPERATOR Work Phone: [facility] 07-28-2022 08:30-0500 Respiratory rate 18 /min Radha Teixeira TAILOR WOMEN'S GARMENT ALTERATION.ROLL PRESS OPERATOR Work Phone: [facility] 07-28-2022 08:30-0500 SaO2% (BldA) [Mass fraction] 97 % Radha Teixeira TAILOR WOMEN'S GARMENT ALTERATION.ROLL PRESS OPERATOR Work Phone: [facility] 07-28-2022 08:30-0500 Systolic blood pressure 130 mm[Hg] Radha Shannonk TAILOR WOMEN'S GARMENT ALTERATION.ROLL PRESS OPERATOR Work Phone: [facility] 03-20-2022 12:23-0400 Body temperature 96.6 [degF] Axel Rose TAILOR WOMEN'S GARMENT ALTERATION.ROLL PRESS OPERATOR Work Phone: [facility] 03-20-2022 12:23-0400 Body weight 130.73 kg Axel Rose TAILOR WOMEN'S GARMENT ALTERATION.ROLL PRESS OPERATOR Work Phone: [facility] 03-20-2022 12:23-0400 Diastolic blood pressure 84 mm[Hg] Axel Milton TAILOR WOMEN'S GARMENT ALTERATION.ROLL PRESS OPERATOR Work Phone: [facility] 03-20-2022 12:23-0400 Heart rate 110 /min Axel Rose TAILOR WOMEN'S GARMENT ALTERATION.ROLL PRESS OPERATOR Work Phone: [facility] 03-20-2022 12:23-0400 Respiratory rate 20 /min Axel Rose TAILOR WOMEN'S GARMENT ALTERATION.ROLL PRESS OPERATOR Work Phone: [facility] 03-20-2022 12:23-0400 SaO2% (BldA) [Mass fraction] 97 % Axel Rose TAILOR WOMEN'S GARMENT ALTERATION.ROLL PRESS OPERATOR Work Phone: [facility] 03-20-2022 12:23-0400 Systolic blood pressure 118 mm[Hg] Axel Rose TAILOR WOMEN'S GARMENT ALTERATION.ROLL PRESS OPERATOR Work Phone: [facility] 03-12-2022 10:33-0400 Body temperature 98.49 [degF] Lisa Blanco APRN.ROLL PRESS OPERATOR Work Phone: [facility] 03-12-2022 10:33-0400 Body weight 130.18 kg Lisa Blanco APRN.ROLL PRESS OPERATOR Work Phone: [facility] 03-12-2022 10:33-0400 Diastolic blood pressure 80 mm[Hg] Lisa Blanco APRN.ROLL PRESS OPERATOR Work Phone: [facility] 03-12-2022 10:33-0400 Heart rate 104 /min Lisa Blanco APRN.ROLL PRESS OPERATOR Work Phone: [facility] 03-12-2022 10:33-0400 Respiratory rate 18 /min Lisa Blanco TAILOR WOMEN'S GARMENT ALTERATION.ROLL PRESS OPERATOR Work Phone: [facility] 03-12-2022 10:33-0400 SaO2% (BldA) [Mass fraction] 97 % Lisa Blanco APRN.ROLL PRESS OPERATOR Work Phone: [facility] 03-12-2022 10:33-0400 Systolic blood pressure 122 mm[Hg] Lisa Blanco APRN.ROLL PRESS OPERATOR Work Phone: [facility] Encounters Encounter Date Encounter Type Care Provider Facility Start: 09-16-2023 End: 09-16-2023 ambulatory MADHAVI GONSALO Facility:[facility] Start: 08-19-2023 End: 08-19-2023 [facility] Facility:[facility] Start: 08-15-2023 End: 08-15-2023 ambulatory GRAY PIERRE [facility] Start: 07-03-2023 End: 07-03-2023 ambulatory BRIGIDA Germain [facility] Start: 06-13-2023 End: 06-13-2023 ambulatory BRIGIDA Germain [facility] Start: 07-28-2022 End: 07-28-2022 Patient encounter procedure Radhaniranjan Shannonnoe FELICIANO.ROLL PRESS OPERATOR Work Phone: [facility] Procedures Date Procedure Procedure Detail Performing Clinician Start: 03-12-2022 STREP A MOLECULAR (POC) Lisa Blanco APRN.ROLL PRESS OPERATOR Work Phone: Plan of Treatment Date Care Activity Detail Author Start: 05-12-2022 Influenza vaccination INFLUENZA (#1) [facility] Start: 09-11-2021 DEPRESSION ASSESSMENT DEPRESSION ASS ESSMENT [facility] Start: 2014 PAP TESTING PAP TESTING [facility] Start: 02-06-2012 Urine microalbumin profile DTAP,TDAP ,TD (1 - Tdap) [facility] Start: 2011 HEPATITIS C SCREENING HEPATITIS C SC REENING [facility] Start: 2011 HIV SCREENING HIV SCREENING [facility] Start: 2005 Adult depression scr eening assessment DEPRESSION SCREENING [facility] Start: 1993 COVID-19 VACCINE (#1) COVID-19 VACCI NE (#1) [facility] Start: 1993 HEPATITIS B (1 of 3 - 3-dose series) HEPATITIS B (1 of 3 - 3-dose series) [facility] Payers Date Payer Category Payer Private Health Insurance [id number] 2022 Unknown [employer] [facility] [id number] 2022-Present [phone] [address] [place] [address] [facility] [id number] 2022 Unknown [employer] [facility] [id number] 2022-Present [phone] [address] [place] [address] PPO [id number] 1993 Unknown [id number] 1993 Unknown [id number] 1993 Unknown [id number] Unknown [id number] Social History Date Type Detail Facility Start: 03-12-2022 End: 07-28-2022 Tobacco smoking status NHIS Never smoked tobacco [facility] Start: 03-12-2022 End: 07-28-2022 Tobacco use and exposure Smokeless tobacco non-user [facility] Start: 1995 Sex Assigned At Not on file [facility] Start: 03-10-2022 End: 07-28-2022 Exposure to SARS-CoV-2 (event) Not sure [facility] Work Phone: Clinical Notes 03-12-2022 to 09-16-2023 Radha Teixeira APRN.ROLL PRESS OPERATOR - 07/28/2022 9:02 AM ESTPatient InstructionsPatient InstructionsAxel Rose APRN.CNP - 03/20/2022 12:27 PM EDTPatient Instructions Note Date & Type Note Facility 09-16-2023 Note HNO ID: [id number] Author: LISA BLANCO APRN.ROLL PRESS OPERATOR Service: ? Author Type: Nurse Practitioner Type: Progress Notes Filed: 09/16/2023 15:05 Note Text: Subjective Patient here with complaints of left-sided lower abdomen pain and tenderness and redness. Patient is 32 weeks . Patient said it started 5 days ago seems to be getting worse. Patient denies any fever chills nausea vomiting. The history is provided by the patient. No computer language coder was used. Rash Review of Systems Constitutional: [...] the emergency room. Patient will call her PHY THERAPIST and let them know what is going on for further follow-up. Lisa Blanco APRN.ROLL PRESS OPERATOR [facility] 08-19-2023 Note HNO ID: [id number] Author: Axel Rose APRN.ROLL PRESS OPERATOR Service: ? Author Type: Nurse Practitioner Type: [...] of care. This note was generated using [employer] software. It may contain errors in wording, punctuation, or spelling. Axel Rose APRN.[facility] 07-28-2022 History of Presen t illness Narrative Subjective The history is provided by the patient. No computer language coder was used. HPI Dianne Ortega is a [...] have confirmed and edited as necessary, the [facility] Review of Systems Constitutional: Negative for [...] detail warranting prompt ER evaluation. Radha Teixeira APRN.DELMAR documented in this encounter [facility] 07-28-2022 Instructions Radha Teixeira APRN.CNP - [...] 2 hours between. documented in this encounter [facility] 03-20-2022 Instructions Axel Rose APRN.CNP - [...] even if the symptoms go away. 2. Widh-lrp-kztuarp pain medication may be taken or other [...] him or her). documented in this encounter [facility] 03-20-2022 History of Presen t illness [...] No external erythema edema noted. Mouth/Throat: Lips: [place]. Mouth: Mucous membranes are moist. Pharynx: Oropharynx [...] of amoxicillin. Patient will be transferred to [facility]. We will follow-up with the ENT or [...] of care. This note was generated using [employer] software. It may contain errors in wording, punctuation, or spelling. Axel Rose APRN.DELMAR documented in this encounter [facility] 03-12-2022 Instructions Lisa Blanco APRN.DELMAR - [...] F (38 C). documented in this encounter [facility] 03-12-2022 History of Presen t illness [...] STREP A MOLECULAR (POC) - negative 2. [place] eye disease of left eye - ICD9: 372.03, ICD10: H10.022 polytrim for a week Prescription instructions reviewed with patient as applicable. Potential red flag symptoms discussed with the patient. Reviewed appropriate action plan to take if red flag symptoms occur. Patient agreeable to treatment plan. Lisa Blanco APRN.DELMAR documented in this encounter [facility] Diagnosis Acute otitis media, left- Primary Unspecified otitis media [facility] Diagnosis Acute otitis media, left- Primary Unspecified otitis media URI with cough and congestion documented in this encounter [facility] Summary Purpose Family History No Family [...] or prosecute any alcohol or drug abuse patient.[facility] the event this information is protected by the Federal Confidentiality of Alcohol and Drug Abuse Patient Records regulations: The Federal rules restrict any use of the information to criminally investigate or prosecute any alcohol or drug abuse patient.[facility] the event this information is protected by the Federal Confidentiality of Alcohol and Drug Abuse Patient Records regulations: The Federal rules restrict any use of the information to criminally investigate or prosecute any alcohol or drug abuse patient.[facility] Reason for Visit (unrecogniz ed section and content) Reason Comments Ear Pain L ear pain, SIMMONS, coug h, ST x9 days, seen 7/4 Reason Comments Cough Pt reported nasal co ngestion, Simmons, bilateral ear pain, decreased hearing x7 days. INFORMATION SOURCE (unrecogn ized section and content) DATE CREATED AUTHOR AUTHOR'S ORGANIZ ATION 09/27/2023 [facility] FOR RECORDS PERTAINING TO PATIENTS WHO ARE [...] BE BASED ON THE PRIMARY CLINICAL RECORDS. [employer] [facility]. provides no warranty or guarantee of the accuracy or completeness of information in this document.
[2023-10-03 18:30] LABS: Hematocrit 35.4 % (37-47); Mean Corp Hgb Conc 31.1 g/dL (32-36); Mean Corpuscular Hgb 23.6 pg (27.0-32.0); Mean Corpuscular Volume 75.8 fL (81-99); Mean Platelet Vol. 10.9 fl (6.2-12.0); Platelet Count 171 K/mm3 (150-450); RBC Distribution Width CV 15.9 % (11.6-14.6); Red Blood Count 4.67 M/mm3 (4.2-5.4); White Blood Count 10.9 K/mm3 (4.4-11.0)
[2023-10-03 18:34] VITALS: BMI 48.2
[2023-10-03 18:36] VITALS: BP 120/68; PULSE 98; TEMP 36.8
[2023-10-03 18:41] LABS: Protein, Urine (Random) < 6.0 mg/dL (<11.9); Protein:Creat Ratio 271 mg/g CRE (0-200)
[2023-10-03 18:45] VITALS: BP 123/71; PULSE 96
[2023-10-03 18:53] LABS: AST(SGOT) 21 U/L (15-37); Alanine Aminotransfer ALT/SGPT 16 U/L (13-56); Creatinine, Serum 0.58 mg/dL (0.55-1.02); EST Glomerular Filtration Rate 128 mL/min (>60); Est Glom Filt Rate - Afr Amer 155 mL/min (>60); Estimated Creatinine Clearance 194.25 ml/min; Uric Acid 3.1 mg/dL (2.6-6.0)
[2023-10-03 18:55] VITALS: BP 119/70; PULSE 95
[2023-10-03 19:07] VITALS: BP 124/73; PULSE 91
[2023-10-03 19:15] VITALS: BP 126/75; PULSE 93
--- NOTE | 2023-10-03 19:40 | OB.TRI.PN_ITS ---
Progress Notes Date of Service: 10/03/23 Progress Note: Patient presents for triage evaluation secondary to elevated bp at work 140/80s FHT: 135 Moderate variability reactive no decelerations category I tracing [place]: no Contractions Assessment and plan: normal pre e labs, Reactive NST, reassuring maternal and status patient discharged to home to follow-up in office. See problem list details for additional plan information. Laboratory Studies: Laboratory Tests 10/03/23 Range/Units 18:10 WBC 10.9 (4.4-11.0) K/mm3 RBC 4.67 (4.2-5.4) M/mm3 Hgb 11.0 L (12.0-15.0) g/dL Hct 35.4 L (37-47) % MCV 75.8 L (81-99) fL MCH 23.6 L (27.0-32.0) pg MCHC 31.1 L (32-36) g/dL RDW Std Deviation 43.0 (35.1-43.9) fl RDW Coeff of Janine 15.9 H (11.6-14.6) % Plt Count 171 (150-450) K/mm3 MPV 10.9 (6.2-12.0) fl Creatinine 0.58 (0.55-1.02) mg/dL Estim Creat Clear Calc 194.25 ml/min Est GFR (MDRD) Af Amer 155 (>60) mL/min Est GFR (MDRD) Non-Af 128 (>60) mL/min Uric Acid 3.1 (2.6-6.0) mg/dL AST 21 (15-37) U/L ALT 16 (13-56) U/L U Random Total Protein < 6.0 (<11.9) mg/dL Urine Creatinine 18.80 (NO RANGE EST.) mg/dL Protein/Creatinin Ratio 271 H (0-200) mg/g CRE Charges/Coding Multi Select Codes Urinary/Genital Urinary/Genital CPT Codes: 32521-43 non-stress test Interp Assessment & Plan (1) Anemia: COMMENT: during /add fe (2) Elevated blood pressure affecting in third trimester, antepartum: COMMENT: Pre E labs:WNL, Urine P/C radio 238. Denies headache/vision changes PLAN: repeat pre e labs-nl normotensive (3) Uterine size date discrepancy : COMMENT: US 09/18/22: EFW 89%. Normal fluid (4) Preexisting diabetes complicating in first trimester, antepartum: COMMENT: dietitian consult, BS check qid: 05/24: >80% readings WNL. Diet controlled. 36 wk growth US and deliver by 40 wk (5) Supervision of high-risk : QUALIFIERS: Trimester: second trimester Qualified Code(s): O09.92 - Supervision of high risk , unspecified, second trimester COMMENT: [id number], SHIVAM 11/08/23 Boy, PC Luiz Kyree (6) : QUALIFIERS: Weeks of gestation: 34 weeks Qualified Code(s): Z3A.34 - 34 weeks gestation of COMMENT: declines carrier testing. LR NIPT. NL anatomy US. (7) Morbid obesity with BMI of 45.0-49.9, adult:
== END 2023-10-03 19:22 | disposition home or self-care (01) ==
LOC: WPOUT 18:01 → WP 18:01
PROVIDERS: Referring Provider Advanced Practice Midwife; Visit Provider Advanced Practice Midwife
DX: O99.891 Other specified diseases and conditions complicating pregnancy (principal); E66.01 Morbid (severe) obesity due to excess calories; R03.0 Elevated blood-pressure reading, without diagnosis of hypertension; O24.113 Pre-existing type 2 diabetes mellitus, in pregnancy, third trimester; O99.213 Obesity complicating pregnancy, third trimester; Z3A.34 34 weeks gestation of pregnancy; O99.013 Anemia complicating pregnancy, third trimester
CPT/HCPCS: 36415; 59025; 59050; 82565; 82570; 84156; 84450; 84460; 84550; 85027; 99221; G0378

== ENCOUNTER → 2023-10-12 | Outpatient (CLI) | payer MEDICAID, SELFPAY ==
--- NOTE | 2023-10-12 15:23 | US_ITS ---
STUDY: OBSTETRICAL ULTRASOUND - BIOPHYSICAL PROFILE REASON FOR EXAM: Female, 28 years old non reactive NST LMP: 02/01/2023 PRIOR ULTRASOUND: 09/18/2023. TECHNIQUE: Transabdominal TECHNICAL QUALITY: Adequate. FINDINGS: There is a single intrauterine fetus. The fetus is in a cephalic presentation. There is demonstrated cardiac activity with a heart rate of 147 bpm. There is a normal amniotic fluid volume. The largest amniotic fluid pocket measures 6.2 cm. The amniotic fluid index (JEREMIE) is 16.3 cm. The placenta is anterior in location and is not low lying. There are Grade 1 placental changes. Age by LMP: 36 weeks, 1 days. SHIVAM by LMP: 11/08/2023. Gender: Male BIOPHYSICAL PROFILE: Breathing Movements (FBM): 2 Gross Body Movements (GBM): 2 Tone (FT): 2 Amniotic Fluid Volume (AFV): 2 TOTAL SCORE: US/Biophysical Prof W/O Non Stres IMPRESSION: Normal biophysical profile of 04/18. Electronically Signed: Pete Keith MD at 18:58 EST ,
== END | disposition home or self-care (01) ==
LOC: US 15:20
PROVIDERS: Referring Provider Advanced Practice Midwife; Visit Provider Advanced Practice Midwife
DX: O28.8 Other abnormal findings on antenatal screening of mother (principal); Z3A.00 Weeks of gestation of pregnancy not specified
CPT/HCPCS: 76819; 87081

== ENCOUNTER → 2023-10-12 | Outpatient (CLI) | payer MEDICAID, SELFPAY ==
--- OUTSIDE RECORDS SUMMARY | 2023-10-12 15:17 | XMS RPT_ITS | CCD ---
Author Name Unknown Address [address] [place] [address] Organization [facility] Care Team Providers Care Bowling Alley Refinisher Name Role Phone Unavailable Primary Care Provider UnavailMADHAVI Ward Referring Unavailable BRIGIDA PERALTA Attending Unavailable SIVAKUMAR BENNETT Referring Unavailable NO PRIMARY CARE, Primary Care Unavailable BRIGIDA PERALTA Attending Unavailable DAKSHA PTEER Referring Unavailable NO PRIMARY CARE, Primary Care [...] 08:30-0500 Body temperature 98.6 [degF] Radha Puneet MOLD CLEANER.ARBOR END MAINSPRING FORMER Work Phone: [facility] 07-28-2022 08:30-0500 Body weight 133.18 kg Radha Teixeira MOLD CLEANER.[employer] MAINSPRING FORMER Work Phone: [facility] 07-28-2022 08:30-0500 Diastolic blood pressure 82 mm[Hg] Radha Puneet MOLD CLEANER.[employer] END MAINSPRING FORMER Work Phone: [facility] 07-28-2022 08:30-0500 Heart rate 112 /min Radha Teixeira MOLD CLEANER.[employer] MAINSPRING FORMER Work Phone: [facility] 07-28-2022 08:30-0500 Respiratory rate 18 /min Radha Teixeira MOLD CLEANER.[employer] MAINSPRING FORMER Work Phone: [facility] 07-28-2022 08:30-0500 SaO2% (BldA) [Mass fraction] 97 % Radha Teixeira MOLD CLEANER.[employer] MAINSPR[employer] FORMER Work Phone: [facility] 07-28-2022 08:30-0500 Systolic blood pressure 130 mm[Hg] Radha Shannonk MOLD CLEANER.[employer] FORMER Work Phone: [facility] 03-20-2022 12:23-0400 Body temperature 96.6 [degF] Axel Rose MOLD CLEANER.[employer] FORMER Work Phone: [facility] 03-20-2022 12:23-0400 Body weight 130.73 kg Axel Rose MOLD CLEANER.[employer] MA[employer] FORMER Work Phone: [facility] 03-20-2022 12:23-0400 Diastolic blood pressure 84 mm[Hg] Axel Milton MOLD CLEANER.[employer] FORMER Work Phone: [facility] 03-20-2022 12:23-0400 Heart rate 110 /min Axel Rose MOLD CLEANER.[employer] FORMER Work Phone: [facility] 03-20-2022 12:23-0400 Respiratory rate 20 /min Axel Rose MOLD CLEANER.[employer] MA[employer] FORMER Work Phone: [facility] 03-20-2022 12:23-0400 SaO2% (BldA) [Mass fraction] 97 % Axel Rose MOLD CLEANER.[employer] FORMER Work Phone: [facility] 03-20-2022 12:23-0400 Systolic blood pressure 118 mm[Hg] Axel Rose MOLD CLEANER.[employer] MA[employer]PRING FORMER Work Phone: [facility] 03-12-2022 10:33-0400 Body temperature 98.49 [degF] Lisa Blanco APRN.[employer] END MAINSPRING FORMER Work Phone: [facility] 03-12-2022 10:33-0400 Body weight 130.18 kg Lisa Blanco APRN.[employer] MA[employer] FORMER Work Phone: [facility] 03-12-2022 10:33-0400 Diastolic blood pressure 80 mm[Hg] Lisa Blanco APRN.[employer] MA[employer]PRING FORMER Work Phone: [facility] 03-12-2022 10:33-0400 Heart rate 104 /min Lisa Blanco APRN.[employer] FORMER Work Phone: [facility] 03-12-2022 10:33-0400 Respiratory rate 18 /min Lisa Blanco MOLD CLEANER.[employer] MAINS[employer]ING FORMER Work Phone: [facility] 03-12-2022 10:33-0400 SaO2% (BldA) [Mass fraction] 97 % Lisa Blanco APRN.[employer] MAINSPR[employer] FORMER Work Phone: [facility] 03-12-2022 10:33-0400 Systolic blood pressure 122 mm[Hg] Lisa Blanco APRN.[employer] MAINSPRING FORMER Work Phone: [facility] Encounters Encounter Date Encounter Type Care Provider Facility Start: 09-16-2023 End: 09-16-2023 ambulatory MADHAVI GONSALO Facility:[facility] Start: 08-19-2023 End: 08-19-2023 [facility] Facility:[facility] Start: 08-15-2023 End: 08-15-2023 ambulatory GRAY PIERRE [facility] Start: 07-03-2023 End: 07-03-2023 ambulatory BRIGIDA Germain [facility] Start: 06-13-2023 End: 06-13-2023 ambulatory BRIGIDA Germain [facility] Start: 07-28-2022 End: 07-28-2022 Patient encounter procedure Radhaniranjan Shannonnoe FELICIANO.[employer] FORMER Work Phone: [facility] Procedures Date Procedure Procedure Detail Performing Clinician Start: 03-12-2022 STREP A MOLECULAR (POC) Lisa Blanco APRN.[employer] FORMER Work Phone: Plan of Treatment Date Care Activity Detail Author Start: 05-12-2022 Influenza vaccination INFLUENZA (#1) [facility] Start: 09-11-2021 DEPRESSION ASSESSMENT DEPRESSION ASS ESSMENT [facility] Start: 2014 PAP TESTING PAP TESTING [facility] Start: 02-06-2012 Urine microalbumin profile DTAP,TDAP ,TD (1 - Tdap) [facility] Start: 2011 HEPATITIS C SCREENING HEPATITIS C SC REENING [facility] Start: 2011 HIV SCREENING HIV SCREENING [facility] Start: 2005 Adult depression scr eening assessment DEPRESSION SCREENING [facility] Start: 1993 COVID-19 VACCINE (#1) COVID-19 VACCI NE (#1) [facility] Start: 1993 HEPATITIS B (1 of 3 - 3-dose series) HEPATITIS B (1 of 3 - 3-dose series) [facility] Payers Date Payer Category Payer Private Health Insurance [id number] 2022 Unknown [employer] [facility] [id number] 2022-Present [phone] [address] [place] [address] [facility] [id number] 2022 Unknown [employer] [facility] [id number] 2022-Present [phone] [address] [place] [address] PPO [id number] 1993 Unknown [id number] 1993 Unknown [id number] 1993 Unknown [id number] Unknown [id number] Social History Date Type Detail Facility Start: 03-12-2022 End: 07-28-2022 Tobacco smoking status NHIS Never smoked tobacco [facility] Start: 03-12-2022 End: 07-28-2022 Tobacco use and exposure Smokeless tobacco non-user [facility] Start: 1993 Sex Assigned At Not on file [facility] Start: 03-10-2022 End: 07-28-2022 Exposure to SARS-CoV-2 (event) Not sure [facility] Work Phone: Clinical Notes 03-12-2022 to 09-16-2023 Radha Teixeira APRN.[employer] FORMER - 07/28/2022 9:02 AM ESTPatient InstructionsPatient InstructionsAxel Rose APRN.CNP - 03/20/2022 12:27 PM EDTPatient Instructions Note Date & Type Note Facility 09-16-2023 Note HNO ID: [id number] Author: LISA BLANCO APRN.[employer] FORMER Service: ? Author Type: Nurse Practitioner Type: Progress Notes Filed: 09/16/2023 15:05 Note Text: Subjective Patient here with complaints of left-sided lower abdomen pain and tenderness and redness. Patient is 32 weeks . Patient said it started 5 days ago seems to be getting worse. Patient denies any fever chills nausea vomiting. The history is provided by the patient. No electrician helper automotive was used. Rash Review of Systems Constitutional: [...] the emergency room. Patient will call her HAT BLOCKING MACHINE OPERATOR and let them know what is going on for further follow-up. Lisa Blanco APRN.[employer] FORMER [facility] 08-19-2023 Note HNO ID: [id number] Author: Axel Rose APRN.[employer] FORMER Service: ? Author Type: Nurse Practitioner Type: [...] of care. This note was generated using [employer]ens[employer] software. It may contain errors in wording, punctuation, or spelling. Axel Rose APRN.[facility] 07-28-2022 History of Presen t illness Narrative Subjective The history is provided by the patient. No electrician helper automotive was used. HPI Dianne Ortega is a [...] have confirmed and edited as necessary, the [facility] Review of Systems Constitutional: Negative for [...] Radha Teixeira APRN.DELMAR documented in this encounter [facility] 07-28-2022 Instructions Radha Teixeira APRN.CNP - [...] 2 hours between. documented in this encounter [facility] 03-20-2022 Instructions Axel Rose APRN.CNP - [...] even if the symptoms go away. 2. Jbnm-icd-nhyywat pain medication may be taken or other [...] him or her). documented in this encounter [facility] 03-20-2022 History of Presen t illness [...] No external erythema edema noted. Mouth/Throat: Lips: [place]. Mouth: Mucous membranes are moist. Pharynx: Oropharynx [...] of amoxicillin. Patient will be transferred to [facility]. We will follow-up with the ENT or [...] of care. This note was generated using Sensics software. It may contain errors in wording, punctuation, or spelling. Axel Rose APRN.DELMAR documented in this encounter [facility] 03-12-2022 Instructions Lisa Blanco APRN.DELMAR - [...] F (38 C). documented in this encounter [facility] 03-12-2022 History of Presen t illness [...] STREP A MOLECULAR (POC) - negative 2. [place] eye disease of left eye - ICD9: 372.03, ICD10: H10.022 polytrim for a week Prescription instructions reviewed with patient as applicable. Potential red flag symptoms discussed with the patient. Reviewed appropriate action plan to take if red flag symptoms occur. Patient agreeable to treatment plan. Lisa Blanco APRN.DELMAR documented in this encounter [facility] Diagnosis Acute otitis media, left- Primary Unspecified otitis media [facility] Diagnosis Acute otitis media, left- Primary Unspecified otitis media URI with cough and congestion documented in this encounter [facility] Summary Purpose Family History No Family [...] or prosecute any alcohol or drug abuse patient.[facility] the event this information is protected by the Federal Confidentiality of Alcohol and Drug Abuse Patient Records regulations: The Federal rules restrict any use of the information to criminally investigate or prosecute any alcohol or drug abuse patient.[facility] the event this information is protected by the Federal Confidentiality of Alcohol and Drug Abuse Patient Records regulations: The Federal rules restrict any use of the information to criminally investigate or prosecute any alcohol or drug abuse patient.[facility] Reason for Visit (unrecogniz ed section and content) Reason Comments Ear Pain L ear pain, SIMMONS, coug h, ST x9 days, seen 7/4 Reason Comments Cough Pt reported nasal co ngestion, Simmons, bilateral ear pain, decreased hearing x7 days. INFORMATION SOURCE (unrecogn ized section and content) DATE CREATED AUTHOR AUTHOR'S ORGANIZ ATION 09/27/2023 [facility] FOR RECORDS PERTAINING TO PATIENTS WHO ARE [...] BE BASED ON THE PRIMARY CLINICAL RECORDS. [employer] [facility]. provides no warranty or guarantee of the accuracy or completeness of information in this document.
== END | disposition home or self-care (01) ==
LOC: LABSPEC 13:09
PROVIDERS: Referring Provider Advanced Practice Midwife; Visit Provider Advanced Practice Midwife
DX: O09.90 Supervision of high risk pregnancy, unspecified, unspecified trimester (principal); Z3A.00 Weeks of gestation of pregnancy not specified
CPT/HCPCS: 87081

== ENCOUNTER → 2023-10-18 | Outpatient (CLI) | payer MEDICAID, SELFPAY ==
--- NOTE | 2023-10-18 09:59 | US_ITS ---
STUDY: SECOND AND THIRD TRIMESTER OBSTETRICAL ULTRASOUND REASON FOR EXAM: Female, 28 years old well being -- 36 Weeks LMP: February 01, 2023. TECHNIQUE: Transabdominal TECHNICAL QUALITY: Adequate. PRIOR ULTRASOUND: Comparison is made with prior study dated October 12, 2023. FINDINGS: There is a single intrauterine fetus. The fetus is in a cephalic presentation. There is demonstrated cardiac activity with a heart rate of 137 bpm. There is a normal amniotic fluid volume. The largest amniotic fluid pocket measures 2.9 cm. The amniotic fluid index (JEREMIE) is 7.7 cm. This is in the lower limits of normal. The placenta is fundal in location. There are Grade 1 placental changes. The cervix was not measured due to the head position. The adnexal regions are not visualized. BIOMETRY: BPD: 9.63 cm: 39 weeks, 2 days HC: 34.5 cm: 39 weeks, 6 days AC: 36.73 cm: 40 weeks, 5 days FL: 7.06 cm: 36 weeks, 1 days CI: 81% FL/BPD: 73% FL/HC: FL/AC: 19% HC/AC: 0.94 age by current US: 39 weeks, 0 days. SHIVAM by current US: October 25, 2023. Estimated weight: 3820 grams, +/- 573 grams, 9 8 %. age by prior US: 38 weeks, 6 days. SHIVAM by prior US: October 26, 2023. Age by LMP: 37 weeks, 0 days. SHIVAM by LMP: November 08, 2023. US/OB Limited With Biometrics IMPRESSION: Single live uterine gestation with mean gestational age of 38 weeks and 6 days. The measurements obtained today fall within the normal expected range. Electronically Signed: Raj Singh MD at 12:00 EST ,
--- OUTSIDE RECORDS SUMMARY | 2023-10-18 12:26 | XMS RPT_ITS | CCD ---
Author Name Unknown Address [address] [place] [address] Organization [facility] Care Team Providers Care Title Checker Name Role Phone Unavailable Primary Care Provider [...] 08:30-0500 Body temperature 98.6 [degF] Radha Puneet FILAMENT MAKER.PRODUCT SAFETY PROFESSIONAL Work Phone: [facility] 07-28-2022 08:30-0500 Body weight 133.18 kg Radha Teixeira FILAMENT MAKER.PRODUCT SAFETY PROFESSIONAL Work Phone: [facility] 07-28-2022 08:30-0500 Diastolic blood pressure 82 mm[Hg] Radha Puneet FILAMENT MAKER.PRODUCT SAFETY PROFESSIONAL Work Phone: [facility] 07-28-2022 08:30-0500 Heart rate 112 /min Radha Teixeira FILAMENT MAKER.PRODUCT SAFETY PROFESSIONAL Work Phone: [facility] 07-28-2022 08:30-0500 Respiratory rate 18 /min Radha Teixeira FILAMENT MAKER.PRODUCT SAFETY PROFESSIONAL Work Phone: [facility] 07-28-2022 08:30-0500 SaO2% (BldA) [Mass fraction] 97 % Radha Teixeira FILAMENT MAKER.PRODUCT SAFETY PROFESSIONAL Work Phone: [facility] 07-28-2022 08:30-0500 Systolic blood pressure 130 mm[Hg] Radha Shannonk FILAMENT MAKER.PRODUCT SAFETY PROFESSIONAL Work Phone: [facility] 03-20-2022 12:23-0400 Body temperature 96.6 [degF] Axel Rose FILAMENT MAKER.PRODUCT SAFETY PROFESSIONAL Work Phone: [facility] 03-20-2022 12:23-0400 Body weight 130.73 kg Axel Rose FILAMENT MAKER.PRODUCT SAFETY PROFESSIONAL Work Phone: [facility] 03-20-2022 12:23-0400 Diastolic blood pressure 84 mm[Hg] Axel Milton FILAMENT MAKER.PRODUCT SAFETY PROFESSIONAL Work Phone: [facility] 03-20-2022 12:23-0400 Heart rate 110 /min Axel oRse FILAMENT MAKER.PRODUCT SAFETY PROFESSIONAL Work Phone: [facility] 03-20-2022 12:23-0400 Respiratory rate 20 /min Axel Rose FILAMENT MAKER.PRODUCT SAFETY PROFESSIONAL Work Phone: [facility] 03-20-2022 12:23-0400 SaO2% (BldA) [Mass fraction] 97 % Axel Rose FILAMENT MAKER.PRODUCT SAFETY PROFESSIONAL Work Phone: [facility] 03-20-2022 12:23-0400 Systolic blood pressure 118 mm[Hg] Axel Rose FILAMENT MAKER.PRODUCT SAFETY PROFESSIONAL Work Phone: [facility] 03-12-2022 10:33-0400 Body temperature 98.49 [degF] Lisa Blanco APRN.PRODUCT SAFETY PROFESSIONAL Work Phone: [facility] 03-12-2022 10:33-0400 Body weight 130.18 kg Lisa Blanco APRN.PRODUCT SAFETY PROFESSIONAL Work Phone: [facility] 03-12-2022 10:33-0400 Diastolic blood pressure 80 mm[Hg] Lisa Blanco APRN.PRODUCT SAFETY PROFESSIONAL Work Phone: [facility] 03-12-2022 10:33-0400 Heart rate 104 /min Lisa Blanco APRN.PRODUCT SAFETY PROFESSIONAL Work Phone: [facility] 03-12-2022 10:33-0400 Respiratory rate 18 /min Lisa Blanco FILAMENT MAKER.PRODUCT SAFETY PROFESSIONAL Work Phone: [facility] 03-12-2022 10:33-0400 SaO2% (BldA) [Mass fraction] 97 % Lisa Blanco APRN.PRODUCT SAFETY PROFESSIONAL Work Phone: [facility] 03-12-2022 10:33-0400 Systolic blood pressure 122 mm[Hg] Lisa Blanco APRN.PRODUCT SAFETY PROFESSIONAL Work Phone: [facility] Encounters Encounter Date Encounter Type Care Provider Facility Start: 09-16-2023 End: 09-16-2023 ambulatory MADHAVI GONSALO Facility:[facility] Start: 08-19-2023 End: 08-19-2023 [facility] Facility:[facility] Start: 08-15-2023 End: 08-15-2023 ambulatory GRAY PIERRE [facility] Start: 07-03-2023 End: 07-03-2023 ambulatory BRIGIDA Germain [facility] Start: 06-13-2023 End: 06-13-2023 ambulatory BRIGIDA Germain [facility] Start: 07-28-2022 End: 07-28-2022 Patient encounter procedure Radhaniranjan Shannonnoe FELICIANO.PRODUCT SAFETY PROFESSIONAL Work Phone: [facility] Procedures Date Procedure Procedure Detail Performing Clinician Start: 03-12-2022 STREP A MOLECULAR (POC) Lisa Blanco APRN.PRODUCT SAFETY PROFESSIONAL Work Phone: Plan of Treatment Date Care Activity Detail Author Start: 05-12-2022 Influenza vaccination INFLUENZA (#1) [facility] Start: 09-11-2021 DEPRESSION ASSESSMENT DEPRESSION ASS ESSMENT [facility] Start: 2014 PAP TESTING PAP TESTING [facility] Start: 02-06-2012 Urine microalbumin profile DTAP,TDAP ,TD (1 - Tdap) [facility] Start: 2011 HEPATITIS C SCREENING HEPATITIS C SC REENING [facility] Start: 2011 HIV SCREENING HIV SCREENING [facility] Start: 2005 Adult depression scr eening assessment DEPRESSION SCREENING [facility] Start: 1993 COVID-19 VACCINE (#1) COVID-19 VACCI NE (#1) [facility] Start: 1993 HEPATITIS B (1 of 3 - 3-dose series) HEPATITIS B (1 of 3 - 3-dose series) [facility] Payers Date Payer Category Payer Private Health Insurance [id number] 2022 Unknown [employer] [facility] [id number] 2022-Present [phone] [address] [place] [address] [facility] [id number] 2022 Unknown [employer] [facility] [id number] 2022-Present [phone] [address] [place] [address] PPO [id number] 1993 Unknown [id number] 1993 Unknown [id number] 1993 Unknown [id number] Unknown [id number] Social History Date Type Detail Facility Start: 03-12-2022 End: 07-28-2022 Tobacco smoking status NHIS Never smoked tobacco [facility] Start: 03-12-2022 End: 07-28-2022 Tobacco use and exposure Smokeless tobacco non-user [facility] Start: 1993 Sex Assigned At Not on file [facility] Start: 03-10-2022 End: 07-28-2022 Exposure to SARS-CoV-2 (event) Not sure [facility] Work Phone: Clinical Notes 03-12-2022 to 09-16-2023 Radha Teixeira APRN.PRODUCT SAFETY PROFESSIONAL - 07/28/2022 9:02 AM ESTPatient InstructionsPatient InstructionsAxel Rose APRN.CNP - 03/20/2022 12:27 PM EDTPatient Instructions Note Date & Type Note Facility 09-16-2023 Note HNO ID: [id number] Author: LISA BLANCO APRN.PRODUCT SAFETY PROFESSIONAL Service: ? Author Type: Nurse Practitioner Type: Progress Notes Filed: 09/16/2023 15:05 Note Text: Subjective Patient here with complaints of left-sided lower abdomen pain and tenderness and redness. Patient is 32 weeks . Patient said it started 5 days ago seems to be getting worse. Patient denies any fever chills nausea vomiting. The history is provided by the patient. No speech language pathology assistant was used. Rash Review of Systems Constitutional: [...] the emergency room. Patient will call her MALL MANAGER and let them know what is going on for further follow-up. Lisa Blanco APRN.PRODUCT SAFETY PROFESSIONAL [facility] 08-19-2023 Note HNO ID: [id number] Author: Axel Rose APRN.PRODUCT SAFETY PROFESSIONAL Service: ? Author Type: Nurse Practitioner Type: [...] of care. This note was generated using H5 software. It may contain errors in wording, punctuation, or spelling. Axel Rose APRN.[facility] 07-28-2022 History of Presen t illness Narrative Subjective The history is provided by the patient. No speech language pathology assistant was used. HPI Dianne Ortega is a [...] have confirmed and edited as necessary, the [facility] Review of Systems Constitutional: Negative for [...] Radha Teixeira APRN.DELMAR documented in this encounter [facility] 07-28-2022 Instructions Radha Teixeira APRN.CNP - [...] 2 hours between. documented in this encounter [facility] 03-20-2022 Instructions Axel Rose APRN.CNP - [...] even if the symptoms go away. 2. Erhp-vza-nilfpzg pain medication may be taken or other [...] him or her). documented in this encounter [facility] 03-20-2022 History of Presen t illness [...] No external erythema edema noted. Mouth/Throat: Lips: [place]. Mouth: Mucous membranes are moist. Pharynx: Oropharynx [...] of amoxicillin. Patient [facility] be transferred to [facility]. We will follow-up with the ENT or [...] of care. This note was generated using H5 software. It may contain errors in wording, punctuation, or spelling. Axel Rose APRN.DELMAR documented in this encounter [facility] 03-12-2022 Instructions Lisa Blanco APRN.DELMAR - [...] F (38 C). documented in this encounter [facility] 03-12-2022 History of Presen t illness [...] STREP A MOLECULAR (POC) - negative 2. [place] eye disease of left eye - ICD9: 372.03, ICD10: H10.022 polytrim for a week Prescription instructions reviewed with patient as applicable. Potential red flag symptoms discussed with the patient. Reviewed appropriate action plan to take if red flag symptoms occur. Patient agreeable to treatment plan. Lisa Blanco APRN.DELMAR documented in this encounter [facility] Acute otitis media, left- Primary Unspecified otitis media [facility] Diagnosis Acute otitis media, left- Primary Unspecified otitis media URI with cough and congestion documented in this encounter [facility] Summary Purpose Family History No Family [...] or prosecute any alcohol or drug abuse patient.[facility] the event this information is protected by the Federal Confidentiality of Alcohol and Drug Abuse Patient Records regulations: The Federal rules restrict any use of the information to criminally investigate or prosecute any alcohol or drug abuse patient.[facility] the event this information is protected by the Federal Confidentiality of Alcohol and Drug Abuse Patient Records regulations: The Federal rules restrict any use of the information to criminally investigate or prosecute any alcohol or drug abuse patient.[facility] Reason for Visit (unrecogniz ed section and content) Reason Comments Ear Pain L ear pain, SIMMONS, coug h, ST x9 days, seen 7/4 Reason Comments Cough Pt reported nasal co ngestion, Simmons, bilateral ear pain, decreased hearing x7 days. INFORMATION SOURCE (unrecogn ized section and content) DATE CREATED AUTHOR AUTHOR'S ORGANIZ ATION 09/27/2023 [facility] FOR RECORDS PERTAINING TO PATIENTS WHO [...] BE BASED ON THE PRIMARY CLINICAL RECORDS. [facility]. provides no warranty or guarantee of the accuracy or completeness of information in this document.
== END | disposition home or self-care (01) ==
LOC: US 09:58
PROVIDERS: Referring Provider Nurse Practitioner Women's Health; Visit Provider Nurse Practitioner Women's Health
DX: O24.313 Unspecified pre-existing diabetes mellitus in pregnancy, third trimester (principal); Z3A.36 36 weeks gestation of pregnancy
CPT/HCPCS: 76816

== ENCOUNTER → 2023-10-25 | Outpatient (CLI) | payer MEDICAID, SELFPAY ==
--- NOTE | 2023-10-25 07:58 | US_ITS ---
STUDY: SECOND AND THIRD TRIMESTER OBSTETRICAL ULTRASOUND - LIMITED REASON FOR EXAM: Female, 28 years old JEREMIE check LMP: February 01, 2023. PRIOR ULTRASOUND: Comparison is made with prior study dated October 18, 2023. TECHNIQUE: Transabdominal TECHNICAL QUALITY: Adequate. FINDINGS: There is a single intrauterine fetus. The fetus is in a cephalic presentation. There is demonstrated cardiac activity with a heart rate of 152 bpm. There is a normal amniotic fluid volume. The largest amniotic fluid pocket measures 3.7 cm x 2.9 cm. The amniotic fluid index (JEREMIE) is 11.2 cm. The placenta is fundal in location. There are Grade 1 placental changes. The cervical length was not measured due to head position. BIOMETRY: Age by LMP: 38 weeks, 0 days. SHIVAM by LMP: November 08, 2019. age by prior US: 40 weeks, 0 days. SHIVAM by prior US: October 25, 2023. US/OB Limited (No Biometrics) IMPRESSION: Normal amniotic fluid. Electronically Signed: Raj Singh MD at 11:11 EST ,
--- OUTSIDE RECORDS SUMMARY | 2023-10-25 08:27 | XMS RPT_ITS | CCD ---
Author Name Unknown Address [address] [place] [address] Organization [facility] Care Team Providers Care Finish Sander Name Role Phone Unavailable Primary Care Provider [...] 08:30-0500 Body temperature 98.6 [degF] Radha Puneet [employer]ORY [employer]TER.CAMPUS MANAGER Work Phone: [facility] 07-28-2022 08:30-0500 Body weight 133.18 kg Radha Teixeira [employer].CAMPUS MANAGER Work Phone: [facility] 07-28-2022 08:30-0500 Diastolic blood pressure 82 mm[Hg] Radha Puneet [employer].CAMPUS MANAGER Work Phone: [facility] 07-28-2022 08:30-0500 Heart rate 112 /min Radha Teixeira [employer].CAMPUS MANAGER Work Phone: [facility] 07-28-2022 08:30-0500 Respiratory rate 18 /min Radha Teixeira [employer].CAMPUS MANAGER Work Phone: [facility] 07-28-2022 08:30-0500 SaO2% (BldA) [Mass fraction] 97 % Radha Teixeira [employer].CAMPUS MANAGER Work Phone: [facility] 07-28-2022 08:30-0500 Systolic blood pressure 130 mm[Hg] Radha Shannonk [employer].CAMPUS MANAGER Work Phone: [facility] 03-20-2022 12:23-0400 Body temperature 96.6 [degF] Axel Rose [employer].CAMPUS MANAGER Work Phone: [facility] 03-20-2022 12:23-0400 Body weight 130.73 kg Axel Rose [employer].CAMPUS MANAGER Work Phone: [facility] 03-20-2022 12:23-0400 Diastolic blood pressure 84 mm[Hg] Axel Milton [employer].CAMPUS MANAGER Work Phone: [facility] 03-20-2022 12:23-0400 Heart rate 110 /min Axel Rose [employer].CAMPUS MANAGER Work Phone: [facility] 03-20-2022 12:23-0400 Respiratory rate 20 /min Axel Rose [employer].CAMPUS MANAGER Work Phone: [facility] 03-20-2022 12:23-0400 SaO2% (BldA) [Mass fraction] 97 % Axel Rose [employer].CAMPUS MANAGER Work Phone: [facility] 03-20-2022 12:23-0400 Systolic blood pressure 118 mm[Hg] Axel Rose [employer]TER.CAMPUS MANAGER Work Phone: [facility] 03-12-2022 10:33-0400 Body temperature 98.49 [degF] Lisa Blanco APRN.CAMPUS MANAGER Work Phone: [facility] 03-12-2022 10:33-0400 Body weight 130.18 kg Lisa Blanco APRN.CAMPUS MANAGER Work Phone: [facility] 03-12-2022 10:33-0400 Diastolic blood pressure 80 mm[Hg] Lisa Blanco APRN.CAMPUS MANAGER Work Phone: [facility] 03-12-2022 10:33-0400 Heart rate 104 /min Lisa Blanco APRN.CAMPUS MANAGER Work Phone: [facility] 03-12-2022 10:33-0400 Respiratory rate 18 /min Lisa Blanco [employer].CAMPUS MANAGER Work Phone: [facility] 03-12-2022 10:33-0400 SaO2% (BldA) [Mass fraction] 97 % Lisa Blanco APRN.CAMPUS MANAGER Work Phone: [facility] 03-12-2022 10:33-0400 Systolic blood pressure 122 mm[Hg] Lisa Blanco APRN.CAMPUS MANAGER Work Phone: [facility] Encounters Encounter Date Encounter Type Care Provider Facility Start: 09-16-2023 End: 09-16-2023 ambulatory MADHAVI GONSALO Facility:[facility] Start: 08-19-2023 End: 08-19-2023 [facility] Facility:[facility] Start: 08-15-2023 End: 08-15-2023 ambulatory GRAY PIERRE [facility] Start: 07-03-2023 End: 07-03-2023 ambulatory BRIGIDA Germain [facility] Start: 06-13-2023 End: 06-13-2023 ambulatory BRIGIDA Germain [facility] Start: 07-28-2022 End: 07-28-2022 Patient encounter procedure Radhaniranjan Shannonnoe FELICIANO.CAMPUS MANAGER Work Phone: [facility] Procedures Date Procedure Procedure Detail Performing Clinician Start: 03-12-2022 STREP A MOLECULAR (POC) Lisa Blanco APRN.CAMPUS MANAGER Work Phone: Plan of Treatment Date Care Activity Detail Author Start: 05-12-2022 Influenza vaccination INFLUENZA (#1) [facility] Start: 09-11-2021 DEPRESSION ASSESSMENT DEPRESSION ASS ESSMENT [facility] Start: 2014 PAP TESTING PAP TESTING [facility] Start: 02-06-2012 Urine microalbumin profile DTAP,TDAP ,TD (1 - Tdap) [facility] Start: 2011 HEPATITIS C SCREENING HEPATITIS C SC REENING [facility] Start: 2011 HIV SCREENING HIV SCREENING [facility] Start: 2005 Adult depression scr eening assessment DEPRESSION SCREENING [facility] Start: 1993 COVID-19 VACCINE (#1) COVID-19 VACCI NE (#1) [facility] Start: 1993 HEPATITIS B (1 of 3 - 3-dose series) HEPATITIS B (1 of 3 - 3-dose series) [facility] Payers Date Payer Category Payer Private Health Insurance [id number] 2022 Unknown [employer] [facility] [id number] 2022-Present [phone] [address] [place] [address] [facility] [id number] 2022 Unknown [employer] [facility] [id number] 2022-Present [phone] [address] [place] [address] PPO [id number] 1993 Unknown [id number] 1993 Unknown [id number] 1993 Unknown [id number] Unknown [id number] Social History Date Type Detail Facility Start: 03-12-2022 End: 07-28-2022 Tobacco smoking status NHIS Never smoked tobacco [facility] Start: 03-12-2022 End: 07-28-2022 Tobacco use and exposure Smokeless tobacco non-user [facility] Start: 1995 Sex Assigned At Not on file C [facility] Start: 03-10-2022 End: 07-28-2022 Exposure to SARS-CoV-2 (event) Not sure [facility] Work Phone: Clinical Notes 03-12-2022 to 09-16-2023 Radha Teixeira APRN.CAMPUS MANAGER - 07/28/2022 9:02 AM ESTPatient InstructionsPatient InstructionsAxel Rose APRN.CNP - 03/20/2022 12:27 PM EDTPatient Instructions Note Date & Type Note Facility 09-16-2023 Note HNO ID: [id number] Author: LISA BLANCO APRN.CAMPUS MANAGER Service: ? Author Type: Nurse Practitioner Type: Progress Notes Filed: 09/16/2023 15:05 Note Text: Subjective Patient here with complaints of left-sided lower abdomen pain and tenderness and redness. Patient is 32 weeks . Patient said it started 5 days ago seems to be getting worse. Patient denies any fever chills nausea vomiting. The history is provided by the patient. No platinumsmith was used. Rash Review of Systems Constitutional: [...] the emergency room. Patient will call her [facility] and let them know what is going on for further follow-up. Lisa Blanco APRN.CAMPUS MANAGER [facility] 08-19-2023 Note HNO ID: [id number] Author: Axel Rose APRN.CAMPUS MANAGER Service: ? Author Type: Nurse Practitioner Type: [...] of care. This note was generated using [employer] software. It may contain errors in wording, punctuation, or spelling. Axel Rose APRN.[facility] 07-28-2022 History of Presen t illness Narrative Subjective The history is provided by the patient. No platinumsmith was used. HPI Dianne Ortega is a [...] have confirmed and edited as necessary, the [facility] Review of Systems Constitutional: Negative for [...] Radha Teixeira APRN.DELMAR documented in this encounter [facility] 07-28-2022 Instructions Radha Teixeira APRN.CNP - [...] 2 hours between. documented in this encounter [facility] 03-20-2022 Instructions Axel Rose APRN.CNP - [...] even if the symptoms go away. 2. Axte-jlx-pnjfitc pain medication may be taken or other [...] him or her). documented in this encounter [facility] 03-20-2022 History of Presen t illness [...] No external erythema edema noted. Mouth/Throat: Lips: [place]ham. Mouth: Mucous membranes are moist. Pharynx: Oropharynx [...] of amoxicillin. Patient will be transferred to [facility]. We will follow-up with the ENT [...] of care. This note was generated using [employer] software. It may contain errors in wording, punctuation, or spelling. Axel Rose APRN.DELMAR documented in this encounter [facility] 03-12-2022 Instructions Lisa Blanco APRN.DELMAR - [...] F (38 C). documented in this encounter [facility] 03-12-2022 History of Presen t illness [...] STREP A MOLECULAR (POC) - negative 2. 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 Potential red flag symptoms discussed with the patient. Reviewed appropriate action plan to take if red flag symptoms occur. Patient agreeable to treatment plan. Lisa Blanco APRN.DELMAR documented in this encounter [facility] documented [facility] Diagnosis Acute otitis media, left- Primary Unspecified otitis media documented [facility] Diagnosis Acute otitis media, left- Primary Unspecified otitis media URI with cough and congestion documented in this encounter [facility] Summary Purpose Family History No Family [...] or prosecute any alcohol or drug abuse patient.[facility] the event this information is protected by the Federal Confidentiality of Alcohol and Drug Abuse Patient Records regulations: The Federal rules restrict any use of the information to criminally investigate or prosecute any alcohol or drug abuse patient.[facility] the event this information is protected by the Federal Confidentiality of Alcohol and Drug Abuse Patient Records regulations: The Federal rules restrict any use of the information to criminally investigate or prosecute any alcohol or drug abuse patient.[facility] Reason for Visit (unrecogniz ed section and content) Reason Comments Ear Pain L ear pain, SIMMONS, coug h, ST x9 days, seen 7/4 Reason Comments Cough Pt reported nasal co ngestion, Simmons, bilateral ear pain, decreased hearing x7 days. INFORMATION SOURCE (unrecogn ized section and content) DATE CREATED AUTHOR AUTHOR'S ORGANIZ ATION 09/27/2023 [facility] FOR RECORDS PERTAINING TO PATIENTS WHO [...] BE BASED ON THE PRIMARY CLINICAL RECORDS. [employer] [facility]. provides no warranty or guarantee of the accuracy or completeness of information in this document.
== END | disposition home or self-care (01) ==
LOC: US 07:57
PROVIDERS: Referring Provider Nurse Practitioner Women's Health; Visit Provider Nurse Practitioner Women's Health
DX: O41.00X0 Oligohydramnios, unspecified trimester, not applicable or unspecified (principal); Z3A.00 Weeks of gestation of pregnancy not specified
CPT/HCPCS: 76815

== ENCOUNTER 2023-10-26 17:27 | Inpatient (IN) | payer MEDICAID, SELFPAY ==
[2023-10-26] VITALS (7 sets, daily range): BP systolic 116–133; BP diastolic 63–84; PULSE 81–101; TEMP 36.6–36.9; O2SAT 97; BMI 48.2
[2023-10-26] MEDS: Lactated Ringers 1,000 ML 999 ML IV (17:50)
--- NOTE | 2023-10-26 18:08 | HP.PCM.OB_ITS ---
HPI - General General Date of Admission: 10/26/23 HPI Narrative SHONNA MONDRAGON, is a 28 F who presents due to variable decels and 6/8 bpp for IOL. Maternal Data Information SHIVAM Calculator Estimated Delivery Date Method Current WG Current Estimate 11/08/23 LMP (Uncertain) 38w 1d Other Estimates 11/07/23 Ultrasound #1 38w 2d PFSH PFSH Medical History Anemia Anemia, Family history of congenital heart defect History of induction of labor HTN complicating peripregnancy, antepartum UTI (urinary tract infection) Home Medications multivit-min no.71-iron fum 28 mg-folate no.1 1 mg-dha 300 mg capsule (PNV- [place]) 1 cap PO DAILY 03/21/23 [History Last Taken 10/26/23 08:00] blood-glucose meter #1 ea 04/19/23 [Rx Last Taken Unknown] blood-glucose sensor (VetrStyle Osbaldo 3 Sensor device) #1 ea 04/28/23 [Rx Last Taken Unknown] blood sugar diagnostic (Blood Glucose Test strips) #120 ea 07/26/23 [Rx Last Taken Unknown] lancets #200 ea 07/26/23 [Rx Last Taken Unknown] ferrous sulfate 325 mg (65 mg iron) tablet (Feosol) 325 mg PO DAILY 10/03/23 [History Last Taken 10/25/23 22:00] Allergy/AdvReac Type Severity Reaction Status Date / Time No Known Allergies Allergy Verified 10/26/23 15:04 Family History Grandfather Diabetes maternal Skin cancer Father Diabetes Grandmother Heart disease Diabetes Maternal Surgical History H/O wisdom tooth extraction Social History adopted: No household members: spouse and children number of children: 1 current occupational status: employed current occupation: works at a care center current occupational exposures/hazards: No pets and animals: No history of recent travel: No sexually active: Yes Smoking Status: Never smoker Electronic Cigarette Use: not used alcohol intake: never substance use type: does not use well-balanced diet: daily or most days caffeine: No eating out: 1-3 times/week during the past year weight has: decreased > 10 lbs what type of physical activity do you participate in: none karly/mu-ism: Orthodox seatbelt use: always do you feel safe at home: Yes additional social history: Philip Guo History 2 Elective abortions Hx Para 1 Spontaneous abortions Hx # Term Pregnancies Ectopic pregnancies Hx # Pregnancies Multiple births # of living children 1 Past Pregnancies Del. Date Name GA/Weeks Outcome Route Bth Weight Gen Labor Lgth Anes th esia Del Locatn Provider FOB 01/18/19 Luiz 39 live - full term 7#5oz. Male 12 hrs epidural [facility], [place] Kyree Delivery Date: 01/18/19 Last Updated by: Angeles Garcia IOL elevated BP Visit Details Expected Delivery Route/Plan Labor Preferences- CB/BF classes: scheduled labor support person: Kyree labor intervention preferences: [] pain management options preferred: epidural cut cord/dad catch: yes : yes PP control planned: discussed discussed possible routes of delivery and associated risks: [] special requests: [] Plans Covid status: [] Flu vaccine: declines Tdap vaccine: given Rhogam: na LARC form signed: yes Problem list reviewed and updated with the most current plan of care details and appropriate orders placed. Relevant counseling for the gestational age provided. Continue routine care and follow up unless otherwise noted in visit notes/problem list details OB Flowsheet Initial Weight: Not Recorded Date -?-?-?-?-?-?-?-?-?-?-?-?- EGA Weight BP Urine Prot -?-?-?-?-?-?-?-?-?-?-?-?- Glucose FHR FuHt Pres Dilation -?-?-?-?-?-?-?-?-?-?-?-?- Effaced St Visit Note 03/30/23 -?-?-?-?-?-?-?-?-?-?-?-?- 8w 1d 289 lb 123/79 -?-?-?-?-?-?-?-?-?-?-?-?- -?-?-?-?-?-?-?-?-?-?-?-?- JV- CRL measurin g 17.7 mm consistent with 8 weeks 2 days and consistent with LMP. desires NIPT 04/26/23 -?-?-?-?-?-?-?-?-?-?-?-?- 12w 0d 285 lb 123/81 Negative -?-?-?-?-?-?-?-?-?-?-?-?- Negative 163 -?-?-?-?-?-?-?-?-?-?-?-?- JV- pictures of baby given today. Fasting glucose levels are between 80-90's, 2 hr pp are 80-100. she wants a continuous glucose monitor. highest 123 after taco jack 05/24/23 -?-?-?-?-?-?-?-?-?-?-?-?- 16w 0d 280 lb 8 oz 114/72 Nega tive -?-?-?-?-?-?-?-?-?-?-?-?- Negative 153 -?-?-?-?-?-?-?-?-?-?-?-?- MH-No VB. Review ed BS readings and >80% WNL. Using eigital radha. Denies c oncerns 06/21/23 -?-?-?-?-?-?-?-?-?-?-?-?- 20w 0d 280 lb 8 oz 138/84 -?-?-?-?-?-?-?-?-?-?-?-?- 146 -?-?-?-?-?-?-?-?-?-?-?-?- JV- pt has a vir al illness currently. her fasting today was elevated likely secondary to the virus (108) will call if persistent over the next 3 days and will start evening metformin 07/19/23 -?-?-?-?-?-?-?-?-?-?-?-?- 24w 0d 278 lb 6 oz 116/83 Nega tive -?-?-?-?-?-?-?-?-?-?-?-?- Negative 164 -?-?-?-?-?-?-?-?-?-?-?-?- JV- never needed metformin. after viral illness glucose levels improved . no lof, vaginal bleeding, or dec fm. declines flu shot. 08/16/23 -?-?-?-?-?-?-?-?-?-?-?-?- 28w 0d 285 lb 4 oz 130/82 Nega tive -?-?-?-?-?-?-?-?-?-?-?-?- Negative 159 -?-?-?-?-?-?-?-?-?-?-?-?- MH-No vB, LOF. G ood FM. Glucose readings WNL, diet controlled. 28 wk labs today. Tdap, larc. Had US MFM yesterday and told placenta not low lying and normal growth. Await report 08/30/23 -?-?-?-?-?-?-?-?-?-?-?-?- 30w 0d 284 lb 6 oz 124/79 Nega tive -?-?-?-?-?-?-?-?-?-?-?-?- Negative 138 36 -?-?-?-?-?-?-?-?-?-?-?-?- JV- fasting leve ls ave 85, 2 hr pp 80's- 120. jeremie 23, will rpt at 36 weeks or sooner as needed. 09/13/23 -?-?-?-?-?-?-?-?-?-?-?-?- 32w 0d 285 lb 6 oz 144/84 Trac e -?-?-?-?-?-?-?-?-?-?-?-?- Negative 154 37 -?-?--?-?-?-?-?-?-?-?-?-?- MH-No VB, LOF. G ood FM. Glucose all WNL. Denies headache, vision changes. Pre E labs ordered. 09/27/23 -?-?-?-?-?-?-?-?-?-?-?-?- 34w 0d 284 lb 2 oz 129/84 Nega tive -?-?-?-?-?-?-?-?-?-?-?-?- Negative 155 37 -?-?-?-?-?-?-?-?-?-?-?-?- LC- growth 86%, to obtain again at 36 weeks. glucose all WNL. LC- growth 86%, to obtain ag ain at 36 weeks. glucose all WNL. start NSTs 10/04/23 -?-?-?-?-?-?-?-?-?-?-?-?- 35w 0d 289 lb 4 oz 125/81 Nega tive -?-?-?-?-?-?-?-?-?-?--?-?- Negative 150 -?-?-?-?-?-?-?-?-?-?-?-?- MH-Reactive NST. BP nl today. Denies headache, vision changes. NO VB, LOF. Good FM. Start twice weekly NST next week. Growth US 10/1810/09/23 -?-?-?-?-?-?-?-?-?-?-?-?- 35w 5d 289 lb 126/84 Negative -?-?-?-?-?-?-?-?-?-?-?-?- Negative 150 130 -?-?-?-?-?-?-?-?-?-?-?-?- LC- NST only, re active. no concerns. fasting and pp under parameters. 10/12/23 -?-?-?-?-?-?-?-?-?-?-?-?- 36w 1d 286 lb 136/82 Negative -?-?-?-?-?-?-?-?-?-?-?-?- Negative 145 -?-?-?-?-?-?-?-?-?-?-?-?- KW-NST reassurin g but having variables. BPP ordered for today. GBS today 10/16/23 -?-?-?-?-?-?-?-?-?-?-?-?- 36w 5d 287 lb 2 oz 123/83 123/83 Negative -?-?-?-?-?-?-?-?-?-?-?-?- Negative 140 -?-?-?-?-?-?-?-?-?-?-?-?- MH-NST only reac tive 10/19/23 -?-?-?-?-?-?-?-?-?-?-?-?- 37w 1d 287 lb 127/83 Negative -?-?-?-?-?-?-?-?-?-?-?-?- Negative 140 3 -?-?-?-?-?--?-?-?-?-?-?-?- 60 -3 KW-no vb/l of/ctx. good fm. Discussed growth US and possible P C/S. she has concerns with c/s and would like to discuss further. 10/23/23 -?-?-?-?-?-?-?-?-?--?-?-?- 37w 5d 128/80 Trace -?-?-?-?-?-?-?-?-?-?-?-?- Negative 140 -?-?-?-?-?-?-?-?-?-?-?-?- -NST only reac tive. US for JEREMIE ordered NST FHR Rate Baby A Baseline: 130 Variability:: Moderate Accelerations:: 15 x 15 Decelerations:: Variable NST Reactive:: Yes FHR Category:: Category I (overall) Uterine Activity:: irregular ROS Constitutional Constitutional: Reports systems reviewed and no addt'l complaints, except as documented Eyes Eyes: Denies change in vision ENT HEENT: Reports systems reviewed and no addt'l complaints, except as documented; Denies headache(s) Cardiovascular Cardiovascular: Reports systems reviewed and no addt'l complaints, except as documented; Denies chest pain or dyspnea Respiratory/Chest Respiratory/Chest: Reports systems reviewed and no addt'l complaints, except as documented Gastrointestinal Gastrointestinal: Reports systems reviewed and no addt'l complaints, except as documented; Denies abdominal pain Genitourinary Genitourinary: Reports systems reviewed and no addt'l complaints, except as documented, contractions Details: present (irregular) and movement Details: present; Denies dysuria or genital lesions Musculoskeletal Musculoskeletal: Reports systems reviewed and no addt'l complaints, except as documented Neurologic Neurologic: Reports systems reviewed and no addt'l complaints, except as documented Endocrine Endocrinology: Reports systems reviewed and no addt'l complaints, except as documented Vital Signs Vital Signs Vital Signs: 10/26/23 15:07 10/26/23 15:10 10/26/23 15:10 Temperature Temperature Source Temporal Pulse Rate 101 H Blood Pressure 117/64 BP Systolic 117 BP Diastolic 64 Pulse Ox 10/26/23 15:07 10/26/23 15:07 Temperature 97.8 F Temperature Source Pulse Rate Blood Pressure BP Systolic BP Diastolic Pulse Ox 97 Weight Weight: 290 lb Body Mass Index (BMI) 48.2 Physical Exam Const alert, oriented x3, no apparent distress and healthy appearing HEENT normocephalic and moist oral mucous membranes Head and Scalp: atraumatic Neck full ROM, no lymphadenopathy, supple and thyroid normal General: trachea midline Lymph Lymphatic: no lymphadenopathy noted Chest inspection of chest normal Resp normal respiratory effort Cardio regular rate GI normal to inspection, nondistended, normoactive bowel sounds, soft to palpation and non-tender Inspection: gravid external exam normal Manual OB Exam: estimated gestational size appropriate, presentation cephalic, dilated, effaced and station Extremity normal to inspection General Extremity: Negative for edema Skin no rashes or lesions noted Neuro no focal motor deficits and deep tendon reflexes 2+ bilaterally Motor Exam: strength 5/5 throughout and clonus absent Psych mental status grossly normal Labs Labs Labs: Blood Type A POSITIVE Antibody Screen NEGATIVE Hct 35.4 % (37-47) L Hgb 11.0 g/dL (12.0-15.0) L Obstetrics Ultrasound Syphilis Total Ab Non-reactive Rubella IgG Antibody Reactive (Nonreactive) Hep Bs Antigen Non-Reactive (Nonreactive) Hepatitis C Antibody Non-Reactive (Nonreactive) Chlamydia DNA (NEGRITO) Negative (Negative) N.gonorrhoeae DNA (NEGRITO) Negative (Negative) HIV 1&2 Antibody Non-Reactive (Nonreactive) Glucose 1 Hr 50 gm 169 mg/dL (70-140) H Gest Glucose Tolerance MG/DL Assessment & Plan (1) Morbid obesity with BMI of 45.0-49.9, adult: (2) : QUALIFIERS: Weeks of gestation: 38 weeks Qualified Code(s): Z3A.38 - 38 weeks gestation of COMMENT: GBS neg, declines carrier testing. LR NIPT. NL anatomy US. (3) Preexisting diabetes complicating in first trimester, antepartum: COMMENT: Primary section 11/01 @ 7:15 with JV, dietitian consult, BS check qid: 05/24: >80% readings WNL. Diet controlled. 36 wk growth US and deliver by 40 wk (4) Supervision of high-risk : QUALIFIERS: Trimester: third trimester Qualified Code(s): O09.93 - Supervision of high risk , unspecified, third trimester COMMENT: [id number], SHIVAM 11/08/23 Boy, PC Luiz Kyree (5) Uterine size date discrepancy : COMMENT: US 09/18/22: EFW 89%. Normal fluid. 10/18 JEREMIE borderline, rpt 1 wk (6) Elevated blood pressure affecting in third trimester, antepartum: COMMENT: Pre E labs:WNL, Urine P/C radio 238. Denies headache/vision changes. twice weekly NST (7) Anemia: QUALIFIERS: Anemia type: unspecified type Qualified Code(s): D64.9 - Anemia, unspecified COMMENT: during /add fe (8) Large for gestational age fetus: COMMENT: EFW 4000g discussed since delivering now at 38 weeks, can consider IOL due to favorable cervix. discussed risks of shoulder dystocia, patient prefers proceeding with IOL over proceedign with cs. (9) Variable heart rate decelerations, antepartum: COMMENT: proceed with IOL PLAN: Plan Patient presents IOL, plan management for with pitocin/AROM. Pain management: plans epidural. GBS negative. Management of any complications: diet controlled diabetes- monitor in labor I have reviewed the COUNTS INCLUDE 234 BEDS AT THE [facility] and made any clinically relevant updates.
[2023-10-26 18:14] LABS: Absolute Lymphocyte Count 1.96 X10^3/uL (0.83-4.51); Absolute Neutrophil Count 8.1 X10^3/uL (2.0-7.7); Basophil# 0.04 X10^3/uL; Basophil% 0.4 % (0-1); Eosinophil# 0.06 X10^3/uL; Eosinophils% 0.5 % (0-5); Hematocrit 38.5 % (37-47); Hemoglobin 11.7 g/dL (12.0-15.0); Lymphocyte # 1.96 X10^3/ul (0.83-4.51); Lymphocyte % 17.6 % (19-41); Mean Corp Hgb Conc 30.4 g/dL (32-36); Mean Corpuscular Hgb 23.2 pg (27.0-32.0); Mean Corpuscular Volume 76.2 fL (81-99); Mean Platelet Vol. 11.5 fl (6.2-12.0); Monocyte# 0.88 X10^3/uL; Monocyte% 7.9 % (0-10); NRBC Flagged by Analyzer 0 % (0-5); Neutrophil # 8.08 X10^3/uL (2.7-7.7); Neutrophil % 72.7 % (47-70); Platelet Count 182 K/mm3 (150-450); RBC Distribution Width SD 43.7 fl (35.1-43.9); Red Blood Count 5.05 M/mm3 (4.2-5.4); White Blood Count 11.1 K/mm3 (4.4-11.0)
[2023-10-26] MEDS: CHLORHEXIDINE GLUC 2% CLOTH 1 EACH TOWELETTE TOPICAL (18:25)
[2023-10-26 18:49] LABS: Syphilis Antibodies Non-reactive
[2023-10-26] MEDS: Oxytocin 15 Units/NS 250ml 15 UNITS/250 ML IV.SOLN 2 UNITS IV (19:10)
[2023-10-26 20:11] LABS: Bedside Glucose 84 mg/dL (74-106)
[2023-10-26 21:08] LABS: Bedside Glucose 83 mg/dL (74-106)
[2023-10-26] MEDS: Lactated Ringers 1,000 ML 50 ML IV (21:26)
[2023-10-26] MEDS: LACTATED RINGERS 500 ML 999 ML IV (23:19)
[2023-10-27] VITALS (79 sets, daily range): BP systolic 102–180; BP diastolic 53–109; PULSE 60–206; RESP 15–18; TEMP 36.2–37.1; O2SAT 89–100
[2023-10-27] MEDS: fentaNYL-bupivacaine (epidural) 100 ML BAG EPIDURAL (00:43)
[2023-10-27 02:22] LABS: Bedside Glucose 90 mg/dL (74-106)
--- NOTE | 2023-10-27 02:34 | PCM.PN.BLA ---
Progress Note arom clear fluid now cat I tracing 4-5 cm internals placed, epidural in continue pit per protocol
[2023-10-27] MEDS: Lactated Ringers 1,000 ML 200 ML IV (03:05)
[2023-10-27] MEDS: 0.9% Saline Lock 10 ML Syringe IV ×2 (04:23→09:29)
[2023-10-27 05:17] LABS: Bedside Glucose 85 mg/dL (74-106)
[2023-10-27] MEDS: Oxytocin 15 Units/NS 250ml 15 UNITS/250 ML IV.SOLN 83 UNITS IV (06:14)
[2023-10-27] MEDS: Oxytocin 10 UNITS/ML Vial IM (06:14)
--- NOTE | 2023-10-27 06:29 | PCM.HP.STD ---
HPI - General General Date of Admission: 10/26/23 HPI Narrative SHONNA MONDRAGON, is a 28 F who presents with heart rate variable decels and spontaneous decel, 6/ bpp. gdma1 . EFW 4250 g. [facility] Medical History (Updated 10/26/23 @ 19:32 by Roxanna Porter) Anemia Anemia, Diabetes mellitus Family history of congenital heart defect History of induction of labor HTN complicating peripregnancy, antepartum UTI (urinary tract infection) Home Medications multivit-min no.71-iron fum 28 mg-folate no.1 1 mg-dha 300 mg capsule (PNV-[place]) 1 cap PO DAILY 03/21/23 [History Last Taken 10/26/23 08:00] blood-glucose meter #1 ea 04/19/23 [Rx Last Taken Unknown] blood-glucose sensor (FreeStyle Osbaldo 3 Sensor device) #1 ea 04/28/23 [Rx Last Taken Unknown] blood sugar diagnostic (Blood Glucose Test strips) #120 ea 07/26/23 [Rx Last Taken Unknown] lancets #200 ea 07/26/23 [Rx Last Taken Unknown] ferrous sulfate 325 mg (65 mg iron) tablet (Feosol) 325 mg PO DAILY 10/03/23 [History Last Taken 10/25/23 22:00] Allergy/AdvReac Type Severity Reaction Status Date / Time No Known Allergies Allergy Verified 10/26/23 15:04 Family History Grandfather Diabetes maternal Skin cancer Father Diabetes Grandmother Heart disease Diabetes Maternal Surgical History H/O wisdom tooth extraction Social History adopted: No household members: spouse and children number of children: 1 current occupational status: employed current occupation: works at a care center current occupational exposures/hazards: No pets and animals: No history of recent travel: No sexually active: Yes Smoking Status: Never smoker Electronic Cigarette Use: not used alcohol intake: never substance use type: does not use well-balanced diet: daily or most days caffeine: No eating out: 1-3 times/week during the past year weight has: decreased > 10 lbs what type of physical activity do you participate in: none karly/zoroastrian: Restorationism seatbelt use: always do you feel safe at home: Yes additional social history: [place] Vital Signs Vital Signs Vital Signs: 10/26/23 15:07 10/26/23 15:10 10/26/23 15:10 Temperature Temperature Source Temporal Pulse Rate 101 H Blood Pressure 117/64 BP Systolic 117 BP Diastolic 64 Pulse Ox 10/26/23 15:07 10/26/23 15:07 10/26/23 19:20 Temperature 97.8 F Temperature Source Pulse Rate Blood Pressure 116/63 BP Systolic 116 BP Diastolic 63 Pulse Ox 97 10/26/23 19:20 10/26/23 19:20 10/26/23 19:20 Temperature Temperature Source Temporal Pulse Rate 91 Blood Pressure BP Systolic BP Diastolic Pulse Ox 97 10/26/23 19:20 10/26/23 20:46 10/26/23 20:46 Temperature 98.2 F Temperature Source Pulse Rate 91 Blood Pressure 130/64 H BP Systolic 130 BP Diastolic 64 Pulse Ox 10/26/23 20:46 10/26/23 20:46 10/26/23 21:03 Temperature 98.4 F Temperature Source Temporal Pulse Rate Blood Pressure 133/84 H BP Systolic 133 BP Diastolic 84 Pulse Ox 10/26/23 21:03 10/26/23 22:11 10/26/23 22:11 Temperature Temperature Source Pulse Rate 85 93 Blood Pressure 132/74 H BP Systolic 132 BP Diastolic 74 Pulse Ox 10/26/23 22:11 10/26/23 22:11 10/26/23 23:24 Temperature 98.2 F Temperature Source Temporal Pulse Rate Blood Pressure 126/78 H BP Systolic 126 BP Diastolic 78 Pulse Ox 10/26/23 23:24 10/27/23 00:00 10/27/23 00:00 Temperature Temperature Source Pulse Rate 81 117 H Blood Pressure BP Systolic BP Diastolic Pulse Ox 100 10/27/23 00:05 10/27/23 00:05 10/27/23 00:10 Temperature Temperature Source Pulse Rate 101 H 100 Blood Pressure BP Systolic BP Diastolic Pulse Ox 99 10/27/23 00:10 10/27/23 00:12 10/27/23 00:12 Temperature Temperature Source Pulse Rate 92 Blood Pressure 130/59 H BP Systolic 130 BP Diastolic 59 Pulse Ox 99 10/27/23 00:19 10/27/23 00:19 10/27/23 00:19 Temperature Temperature Source Pulse Rate 85 86 Blood Pressure 125/76 H BP Systolic 125 BP Diastolic 76 Pulse Ox 10/27/23 00:19 10/27/23 00:22 10/27/23 00:22 Temperature Temperature Source Pulse Rate 88 Blood Pressure 114/63 BP Systolic 114 BP Diastolic 63 Pulse Ox 98 10/27/23 00:24 10/27/23 00:24 10/27/23 00:28 Temperature Temperature Source Pulse Rate 99 Blood Pressure 123/57 H BP Systolic 123 BP Diastolic 57 Pulse Ox 99 10/27/23 00:28 10/27/23 00:29 10/27/23 00:29 Temperature Temperature Source Pulse Rate 93 92 Blood Pressure BP Systolic BP Diastolic Pulse Ox 98 10/27/23 00:33 10/27/23 00:33 10/27/23 00:34 Temperature Temperature Source Pulse Rate 92 92 Blood Pressure 114/57 L BP Systolic 114 BP Diastolic 57 Pulse Ox 10/27/23 00:34 10/27/23 00:37 10/27/23 00:37 Temperature Temperature Source Pulse Rate 96 Blood Pressure 117/57 L BP Systolic 117 BP Diastolic 57 Pulse Ox 99 10/27/23 00:39 10/27/23 00:39 10/27/23 00:41 Temperature Temperature Source Pulse Rate 89 Blood Pressure 106/55 L BP Systolic 106 BP Diastolic 55 Pulse Ox 99 10/27/23 00:41 10/27/23 00:44 10/27/23 00:44 Temperature Temperature Source Pulse Rate 81 72 Blood Pressure BP Systolic BP Diastolic Pulse Ox 99 10/27/23 00:47 10/27/23 00:47 10/27/23 00:49 Temperature Temperature Source Pulse Rate 73 86 Blood Pressure 108/58 L BP Systolic 108 BP Diastolic 58 Pulse Ox 10/27/23 00:49 10/27/23 00:52 10/27/23 00:52 Temperature Temperature Source Pulse Rate 90 Blood Pressure 110/65 BP Systolic 110 BP Diastolic 65 Pulse Ox 97 10/27/23 00:53 10/27/23 00:53 10/27/23 00:55 Temperature Temperature Source Pulse Rate 92 130 H Blood Pressure BP Systolic BP Diastolic Pulse Ox 89 10/27/23 00:55 10/27/23 01:00 10/27/23 01:00 Temperature Temperature Source Pulse Rate 122 H Blood Pressure BP Systolic BP Diastolic Pulse Ox 100 98 10/27/23 01:03 10/27/23 01:03 10/27/23 01:04 Temperature Temperature Source Pulse Rate 206 H Blood Pressure 180/109 H 164/70 H BP Systolic 180 164 BP Diastolic 109 70 Pulse Ox 10/27/23 01:04 10/27/23 01:05 10/27/23 01:05 Temperature Temperature Source Pulse Rate 104 H 103 H Blood Pressure BP Systolic BP Diastolic Pulse Ox 100 10/27/23 01:10 10/27/23 01:10 10/27/23 01:12 Temperature Temperature Source Pulse Rate 90 Blood Pressure 127/65 H BP Systolic 127 BP Diastolic 65 Pulse Ox 99 10/27/23 01:12 10/27/23 01:15 10/27/23 01:15 Temperature Temperature Source Pulse Rate 90 92 Blood Pressure BP Systolic BP Diastolic Pulse Ox 99 10/27/23 01:18 10/27/23 01:18 10/27/23 01:20 Temperature Temperature Source Pulse Rate 90 92 Blood Pressure 125/59 H BP Systolic 125 BP Diastolic 59 Pulse Ox 10/27/23 01:20 10/27/23 01:22 10/27/23 01:22 Temperature Temperature Source Pulse Rate 86 Blood Pressure 117/60 BP Systolic 117 BP Diastolic 60 Pulse Ox 99 10/27/23 01:25 10/27/23 01:25 10/27/23 01:28 Temperature Temperature Source Pulse Rate 96 Blood Pressure 124/56 H BP Systolic 124 BP Diastolic 56 Pulse Ox 99 10/27/23 01:28 10/27/23 01:30 10/27/23 01:30 Temperature Temperature Source Pulse Rate 84 89 Blood Pressure BP Systolic BP Diastolic Pulse Ox 99 10/27/23 01:32 10/27/23 01:32 10/27/23 03:48 Temperature Temperature Source Pulse Rate 83 Blood Pressure 114/53 L 154/70 H BP Systolic 114 154 BP Diastolic 53 70 Pulse Ox 10/27/23 03:48 10/27/23 03:50 10/27/23 03:50 Temperature Temperature Source Pulse Rate 96 88 Blood Pressure 115/63 BP Systolic 115 BP Diastolic 63 Pulse Ox 10/27/23 04:11 10/27/23 04:11 10/27/23 04:20 Temperature Temperature Source Pulse Rate 75 Blood Pressure 102/53 L 105/58 L BP Systolic 102 105 BP Diastolic 53 58 Pulse Ox 10/27/23 04:20 10/27/23 04:24 10/27/23 04:24 Temperature Temperature Source Pulse Rate 70 63 Blood Pressure 109/62 BP Systolic 109 BP Diastolic 62 Pulse Ox 10/27/23 04:54 10/27/23 04:54 10/27/23 04:54 Temperature Temperature Source Temporal Pulse Rate 79 Blood Pressure BP Systolic BP Diastolic Pulse Ox 100 10/27/23 04:54 10/27/23 04:55 10/27/23 04:55 Temperature 97.1 F L Temperature Source Pulse Rate 80 Blood Pressure 115/56 L BP Systolic 115 BP Diastolic 56 Pulse Ox 10/27/23 06:25 10/27/23 06:25 Temperature Temperature Source Pulse Rate 60 Blood Pressure BP Systolic BP Diastolic Pulse Ox 99 Weight Weight: 290 lb Body Mass Index (BMI) 48.2 Results Lab / Micro Data 10/26/23 17:50 Labs: Laboratory Results - last 24 hr 10/26/23 17:50: WBC 11.1 H, RBC 5.05, Hgb 11.7 L, Hct 38.5, MCV 76.2 L, MCH 23.2 L, MCHC 30.4 L, RDW Std Deviation 43.7, RDW Coeff of Janine 16.0 H, Plt Count 182, MPV 11.5, Immature Gran % (Auto) 0.900, Neut % (Auto) 72.7 H, Lymph % (Auto) 17.6 L, Cloud % (Auto) 7.9, Eos % (Auto) 0.5, Baso % (Auto) 0.4, Absolute Neuts (auto) 8.1 H, Absolute Lymphs (auto) 1.96, Nucleated RBC % 0, Syphilis Total Ab Non-reactive, Blood Type A POSITIVE, Antibody Screen NEGATIVE 10/26/23 19:41: POC Glucose 84 10/26/23 20:40: POC Glucose 83 10/27/23 00:40: POC Glucose 90 10/27/23 04:57: POC Glucose 85
--- NOTE | 2023-10-27 06:30 | OP.PCM_ITS ---
Assessment & Plan (1) Variable heart rate decelerations, antepartum: COMMENT: proceed with IOL (2) Large for gestational age fetus: COMMENT: EFW 4000g discussed since delivering now at 38 weeks, can consider IOL due to favorable cervix. discussed risks of shoulder dystocia, patient prefers proceeding with IOL over proceedign with cs. (3) Elevated blood pressure affecting in third trimester, antepartum: COMMENT: Pre E labs:WNL, Urine P/C radio 238. Denies headache/vision changes. twice weekly NST (4) Uterine size date discrepancy : COMMENT: US 09/18/22: EFW 89%. Normal fluid. 10/18 JEREMIE borderline, rpt 1 wk (5) Preexisting diabetes complicating in first trimester, antepartum: COMMENT: Primary section 11/01 @ 7:15 with JV, dietitian consult, BS check qid: 05/24: >80% readings WNL. Diet controlled. 36 wk growth US and deliver by 40 wk (6) Supervision of high-risk : QUALIFIERS: Trimester: third trimester Qualified Code(s): O09.93 - Supervision of high risk , unspecified, third trimester COMMENT: [id number], SHIVAM 11/08/23 Shadi, MADAN Luiz Kyree (7) : QUALIFIERS: Weeks of gestation: 38 weeks Qualified Code(s): Z3A.38 - 38 weeks gestation of COMMENT: GBS neg, declines carrier testing. LR NIPT. NL anatomy US. (8) Morbid obesity with BMI of 45.0-49.9, adult: (9) Anemia: QUALIFIERS: Anemia type: unspecified type Qualified Code(s): D64.9 - Anemia, unspecified COMMENT: during /add fe (10) Vaginal delivery: COMMENT: SM IOL variables boy zach Maternal Data Information SHIVAM Calculator Estimated Delivery Date Method Current WG Current Estimate 11/08/23 LMP (Uncertain) 38w 2d Other Estimates 11/07/23 Ultrasound #1 38w 3d Vaginal Delivery Operative Information Date of Procedure: 10/27/23 Pre-Operative Diagnosis: see a/p diagnoses Post-Operative Diagnosis: same Surgery / Procedure Performed: Spontaneous Vaginal Delivery Type of Anesthesia: Epidural Special Medications: none Estimated Blood Loss: 200 Fluids Replaced: crystalloid Findings Description of Procedure: Patient began pushing and delivered the head in the SETH presentation. The head was delivered atraumatically and a loose nuchal cord ?1 was identified and the delivered through without complication. The anterior and posterior shoulders delivered without complication followed by the rest of the infant and the was placed on the maternal abdomen. Delayed cord clamping was employed for approximately 60 seconds. Cord was clamped and cut and gentle traction was applied to the cord and the placenta delivered spontaneously immediately following it was noted to be intact with three-vessel cord. The perineum and vagina were inspected and noted to have a second degree perineal laceration which was repaired in the usual fashion with 3-0 vicryl rapide. . EBL was 200 cc. Patient and tolerated delivery well. Amniotic Fluid Description: Clear Placental Delivery Description: Spontaneous Placenta Disposition: [facility] Cord Vessel Description: 3 Vessels Cord Entanglement: Around neck x 1, loose Delayed Cord Clamping: Yes Post Vaginal Delivery Medications Given After Delivery: - (Pitocin) Episiotomy Description: None Complication Complications: None Procedures Urinary/Genital [id number]: [id number] Vaginal Delivery+PP Care([facility])
--- NOTE | 2023-10-27 06:31 | DCINST_ITS ---
Discharge Instructions Diet Discharge Diet: No restrictions Activity Discharge Activity: Return to Normal Activity, May Not Drive (while taking narcotic pain medications.) and May Shower May resume sexual activity in: 4-6 weeks Dressing / Incision Call your doctor if your incision/area has: Continuous Slow Oozing, Sudden Increased Bleeding, Increased Pain/ Swelling, Increased Redness and Foul Smelling Discharge Follow Up Care Please Follow Up With: Marlin Gary MD When: Call [phone] to make an appointment with your doctor in 6 weeks. If you had elevated blood pressure or 4th degree laceration, you will need to be seen in 2 weeks. Test Results: Test results from this visit will be discussed in further detail at your follow- up appointment, if applicable. Discharge Plan Admission Admit Date/Time: 10/26/23 17:27 Attending Provider: Marlin Gary Primary Care Provider: Katlyn Doty Primary Discharge Orders/Prescriptions Prescriptions: No Action PNV-[place] 28-1-300 mg capsule 1 cap PO DAILY (DME) FreeStyle Osbaldo 3 Sensor Device See Rx Instructions .Route Qty: 1 0RF Rx Instructions: As directed ferrous sulfate [Feosol] 325 mg (65 mg iron) tablet 325 mg PO DAILY (DME) blood-glucose meter Misc See Rx Instructions .MEDSUPPLY Qty: 1 0RF Rx Instructions: As directed- Test fasting and 2 hours after meals (DME) Blood Glucose Test Strip See Rx Instructions .Route Qty: 120 8RF Rx Instructions: As directed- fasting and 2 hr post meals (DME) lancets Misc See Rx Instructions .MEDSUPPLY Qty: 200 7RF Rx Instructions: As directed- fasting and 2 hr post meals Referrals / Follow Up: Care Physician,No Primary [Primary Care Provider] - Disposition Disposition (needs filled in before D/C Order can be placed): Home, Self Care
[2023-10-27] MEDS: Ondansetron 4 MG/2 ML Vial IV (06:32)
[2023-10-27 07:58] LABS: Bedside Glucose 112 mg/dL (74-106)
[2023-10-27 07:58] LABS: Bedside Glucose 107 mg/dL (74-106)
[2023-10-28 00:31] VITALS: BP 119/69; PULSE 82; RESP 14; TEMP 36.8; O2SAT 98
[2023-10-28 04:57] VITALS: BP 138/88; PULSE 80; RESP 16; TEMP 36.6; O2SAT 95
--- NOTE | 2023-10-28 05:13 | PCM.PN.OB ---
Subjective Subjective Patient doing well without complaints. Tolerating PO. Ambulating and voiding without difficulty. feeding well. Denies chest pain, shortness of breath, calf pain/swelling, fevers, chills, lightheadedness. Objective Data Objective Data Vital Signs: Vital Signs Temp Pulse Resp BP Pulse Ox O2 Del Method 97.9 F 80 16 138/88 H 95 Room Air 10/28/23 04:57 10/28/23 04:57 10/28/23 04:57 10/28/23 04:57 10/28/23 04:57 10/28/23 04:57 Oxygen Delivery Method Room Air Weight: 290 lb Body Mass Index (BMI) 48.2 Intake & Output: Intake and Output for Last 24 Hours 10/26/23 10/27/23 10/28/23 23:59 23:59 23:59 Intake Total 1612.90 / 1612.90 1824.73 / 1824.73 Output Total 100 / 100 1000 / 1000 Balance 1512.90 / 1512.90 824.73 / 824.73 Lab / Micro Data 10/26/23 17:50 Labs: Laboratory Results - last 24 hr 10/27/23 04:57: POC Glucose 85 10/27/23 06:40: POC Glucose 112 H 10/27/23 07:32: POC Glucose 107 H ROS Constitutional Constitutional: Reports systems reviewed and no addt'l complaints, except as documented Cardiovascular Cardiovascular: Reports systems reviewed and no addt'l complaints, except as documented Respiratory/Chest Respiratory/Chest: Reports systems reviewed and no addt'l complaints, except as documented Gastrointestinal Gastrointestinal: Reports systems reviewed and no addt'l complaints, except as documented Physical Exam Const alert, oriented x3 and no apparent distress HEENT Head and Scalp: atraumatic Resp normal respiratory effort GI soft to palpation and non-tender Bimanual Exam - Vag & Uterus: uterus non-tender Uterus Palpation: uterus fundus firm (below Umbilicus) Assessment & Plan (1) Vaginal delivery: COMMENT: SM IOL variables boy zach (2) Large for gestational age fetus: COMMENT: EFW 4000g discussed since delivering now at 38 weeks, can consider IOL due to favorable cervix. discussed risks of shoulder dystocia, patient prefers proceeding with IOL over proceedign with cs. (3) Preexisting diabetes complicating in first trimester, antepartum: COMMENT: Primary section 11/01 @ 7:15 with JV, dietitian consult, BS check qid: 05/24: >80% readings WNL. Diet controlled. 36 wk growth US and deliver by 40 wk PLAN: Plan s/p PPD # 1 1. routine post delivery care 2. breast feeding- support given 3. rh positive 4. rubella immune
[2023-10-28 05:14] LABS: Bedside Glucose 87 mg/dL (74-106)
[2023-10-28 08:20] VITALS: BP 143/119; PULSE 76; RESP 18; TEMP 36.3; O2SAT 98
[2023-10-28 08:21] VITALS: BP 126/97
[2023-10-28] MEDS: Benzocaine/Lanolin/Aloe Vera 1 SPRAY EACH TOPICAL (10:24)
[2023-10-28 14:30] VITALS: BP 117/75; PULSE 87; RESP 18; TEMP 36.9; O2SAT 97
[2023-10-28] MEDS: Senna/Docusate Sodium 1 Tablet PO (14:38)
== END 2023-10-28 17:40 | disposition home or self-care (01) | DRG 560 ==
LOC: WPOUT 17:28 → WP 17:28
PROVIDERS: Admitting Provider Obstetrics & Gynecology; Referring Provider Obstetrics & Gynecology; Visit Provider Obstetrics & Gynecology
DX: O76 Abnormality in fetal heart rate and rhythm complicating labor and delivery (principal); Z37.0 Single live birth; O24.32 Unspecified pre-existing diabetes mellitus in childbirth; E66.01 Morbid (severe) obesity due to excess calories; D64.9 Anemia, unspecified; O99.02 Anemia complicating childbirth; O99.214 Obesity complicating childbirth; O70.1 Second degree perineal laceration during delivery; O28.8 Other abnormal findings on antenatal screening of mother; Z03.71 Encounter for suspected problem with amniotic cavity and membrane ruled out; O69.81X0 Labor and delivery complicated by cord around neck, without compression, not applicable or unspecified; O99.892 Other specified diseases and conditions complicating childbirth; R03.0 Elevated blood-pressure reading, without diagnosis of hypertension; Z3A.38 38 weeks gestation of pregnancy
CPT/HCPCS: 59025; 59050; 76815; 76819; 82962; 85025; 86780; 86850; 86900; 86901; 99221; J7120; A4216; G0378; J2405

== ENCOUNTER → 2023-10-26 | Outpatient (CLI) | payer MEDICAID, SELFPAY ==
--- NOTE | 2023-10-26 13:28 | US_ITS ---
STUDY: OBSTETRICAL ULTRASOUND - BIOPHYSICAL PROFILE REASON FOR EXAM: Female, 28 years old non reactive nst LMP: February 01, 2023. PRIOR ULTRASOUND: Comparison is made with prior study of October 25, 2023. TECHNIQUE: Transabdominal TECHNICAL QUALITY: Adequate. FINDINGS: There is a single intrauterine fetus. The fetus is in a cephalic presentation. There is demonstrated cardiac activity with a heart rate of 157 bpm. There is a normal amniotic fluid volume. The largest amniotic fluid pocket measures 7.6 cm. The amniotic fluid index (JEREMIE) is 12.14 cm. The placenta is fundal in location. There are Grade 0 placental changes. Age by LMP: 38 weeks, 1 days. SHIVAM by LMP: October 31, 2023. BIOPHYSICAL PROFILE: Breathing Movements (FBM): 0 Gross Body Movements (GBM): 2 Tone (FT): 2 Amniotic Fluid Volume (AFV): 2 TOTAL SCORE: 6 / 8 US/Biophysical Prof W/O Non Stres IMPRESSION: biophysical profile of 68. The office was notified. Electronically Signed: Raj Singh MD at 15:35 EST ,
--- OUTSIDE RECORDS SUMMARY | 2023-10-26 19:34 | XMS RPT_ITS | CCD ---
Author Name Unknown Address [address] [place] [address] Organization [facility] Care Team Providers Care Mail Handler Name Role Phone Unavailable Primary Care Provider [...] 08:30-0500 Body temperature 98.6 [degF] Radha Puneet SALES REPRESENTATIVE GAS SERVICE.TOOL SPECIALIST Work Phone: [facility] 07-28-2022 08:30-0500 Body weight 133.18 kg Radha Teixeira SALES REPRESENTATIVE GAS SERVICE.TOOL SPECIALIST Work Phone: [facility] 07-28-2022 08:30-0500 Diastolic blood pressure 82 mm[Hg] Radha Puneet SALES REPRESENTATIVE GAS SERVICE.TOOL SPECIALIST Work Phone: [facility] 07-28-2022 08:30-0500 Heart rate 112 /min Radha Teixeira SALES REPRESENTATIVE GAS SERVICE.TOOL SPECIALIST Work Phone: [facility] 07-28-2022 08:30-0500 Respiratory rate 18 /min Radha Teixeira SALES REPRESENTATIVE GAS SERVICE.TOOL SPECIALIST Work Phone: [facility] 07-28-2022 08:30-0500 SaO2% (BldA) [Mass fraction] 97 % Radha Teixeira SALES REPRESENTATIVE GAS SERVICE.TOOL SPECIALIST Work Phone: [facility] 07-28-2022 08:30-0500 Systolic blood pressure 130 mm[Hg] Radha Shannonk SALES REPRESENTATIVE GAS SERVICE.TOOL SPECIALIST Work Phone: [facility] 03-20-2022 12:23-0400 Body temperature 96.6 [degF] Axel Rose SALES REPRESENTATIVE GAS SERVICE.TOOL SPECIALIST Work Phone: [facility] 03-20-2022 12:23-0400 Body weight 130.73 kg Axel Rose SALES REPRESENTATIVE GAS SERVICE.TOOL SPECIALIST Work Phone: [facility] 03-20-2022 12:23-0400 Diastolic blood pressure 84 mm[Hg] Axel Milton SALES REPRESENTATIVE GAS SERVICE.TOOL SPECIALIST Work Phone: [facility] 03-20-2022 12:23-0400 Heart rate 110 /min Axel Rose SALES REPRESENTATIVE GAS SERVICE.TOOL SPECIALIST Work Phone: [facility] 03-20-2022 12:23-0400 Respiratory rate 20 /min Axel Rose SALES REPRESENTATIVE GAS SERVICE.TOOL SPECIALIST Work Phone: [facility] 03-20-2022 12:23-0400 SaO2% (BldA) [Mass fraction] 97 % Axel Rose SALES REPRESENTATIVE GAS SERVICE.TOOL SPECIALIST Work Phone: [facility] 03-20-2022 12:23-0400 Systolic blood pressure 118 mm[Hg] Axel Rose SALES REPRESENTATIVE GAS SERVICE.TOOL SPECIALIST Work Phone: [facility] 03-12-2022 10:33-0400 Body temperature 98.49 [degF] Lisa Blanco APRN.TOOL SPECIALIST Work Phone: [facility] 03-12-2022 10:33-0400 Body weight 130.18 kg Lisa Blanco APRN.TOOL SPECIALIST Work Phone: [facility] 03-12-2022 10:33-0400 Diastolic blood pressure 80 mm[Hg] Lisa Blanco APRN.TOOL SPECIALIST Work Phone: [facility] 03-12-2022 10:33-0400 Heart rate 104 /min Lisa Blanco APRN.TOOL SPECIALIST Work Phone: [facility] 03-12-2022 10:33-0400 Respiratory rate 18 /min Lisa Blanco SALES REPRESENTATIVE GAS SERVICE.TOOL SPECIALIST Work Phone: [facility] 03-12-2022 10:33-0400 SaO2% (BldA) [Mass fraction] 97 % Lisa Blanco APRN.TOOL SPECIALIST Work Phone: [facility] 03-12-2022 10:33-0400 Systolic blood pressure 122 mm[Hg] Lisa Blanco APRN.TOOL SPECIALIST Work Phone: [facility] Encounters Encounter Date Encounter Type Care Provider Facility Start: 09-16-2023 End: 09-16-2023 ambulatory MADHAVI GONSALO Facility:[facility] Start: 08-19-2023 End: 08-19-2023 [facility] Facility:[facility] Start: 08-15-2023 End: 08-15-2023 ambulatory [facility] Start: 07-03-2023 End: 07-03-2023 ambulatory BRIGIDA [facility] Start: 06-13-2023 End: 06-13-2023 ambulatory BRIGIDA [facility] Start: 07-28-2022 End: 07-28-2022 Patient encounter procedure Radhaniranjan Shannonnoe FELICIANO.TOOL SPECIALIST Work Phone: [facility] Procedures Date Procedure Procedure Detail Performing Clinician Start: 03-12-2022 STREP A MOLECULAR (POC) Lisa Blanco APRN.TOOL SPECIALIST Work Phone: Plan of Treatment Date Care Activity Detail Author Start: 05-12-2022 Influenza vaccination INFLUENZA (#1) [facility] Start: 09-11-2021 DEPRESSION ASSESSMENT DEPRESSION ASS ESSMENT [facility] Start: 2014 PAP TESTING PAP TESTING [facility] Start: 02-06-2012 Urine microalbumin profile DTAP,TDAP ,TD (1 - Tdap) [facility] Start: 2011 HEPATITIS C SCREENING HEPATITIS C SC REENING [facility] Start: 2011 HIV SCREENING HIV SCREENING [facility] Start: 2005 Adult depression scr eening assessment DEPRESSION SCREENING [facility] Start: 1993 COVID-19 VACCINE (#1) COVID-19 VACCI NE (#1) [facility] Start: 1993 HEPATITIS B (1 of 3 - 3-dose series) HEPATITIS B (1 of 3 - 3-dose series) [facility] Payers Date Payer Category Payer Private Health Insurance [id number] 2022 Unknown [employer] [facility] [id number] 2022-Present [phone] [address] [place] [address] [facility] [id number] 2022 Unknown [employer] [facility] [id number] 2022-Present [phone] [address] [place] [address] PPO [id number] 1993 Unknown [id number] 1993 Unknown [id number] 1993 Unknown [id number] Unknown [id number] Social History Date Type Detail Facility Start: 03-12-2022 End: 07-28-2022 Tobacco smoking status NHIS Never smoked tobacco [facility] Start: 03-12-2022 End: 07-28-2022 Tobacco use and exposure Smokeless tobacco non-user [facility] Start: 1993 Sex Assigned At Not on file [facility] Start: 03-10-2022 End: 07-28-2022 Exposure to SARS-CoV-2 (event) Not sure [facility] Work Phone: Clinical Notes 03-12-2022 to 09-16-2023 Radha Teixeira APRN.TOOL SPECIALIST - 07/28/2022 9:02 AM ESTPatient InstructionsPatient InstructionsAxel Rose APRN.CNP - 03/20/2022 12:27 PM EDTPatient Instructions Note Date & Type Note Facility 09-16-2023 Note HNO ID: [id number] Author: LISA BLANCO APRN.TOOL SPECIALIST Service: ? Author Type: Nurse Practitioner Type: Progress Notes Filed: 09/16/2023 15:05 Note Text: Subjective Patient here with complaints of left-sided lower abdomen pain and tenderness and redness. Patient is 32 weeks . Patient said it started 5 days ago seems to be getting worse. Patient denies any fever chills nausea vomiting. The history is provided by the patient. No speech and language assistant was used. Rash Review of Systems [...] the emergency room. Patient will call her [employer] and let them know what is going on for further follow-up. Lisa Blanco APRN.TOOL SPECIALIST [facility] 08-19-2023 Note HNO ID: [id number] Author: Axel Rose APRN.TOOL SPECIALIST Service: ? Author Type: Nurse Practitioner Type: [...] of care. This note was generated using Zapcoder software. It may contain errors in wording, punctuation, or spelling. Axel Rose APRN.[facility] 07-28-2022 History of Presen t illness Narrative Subjective The history is provided by the patient. No speech and language assistant was used. HPI Dianne Ortega is [...] have confirmed and edited as necessary, the [facility] Review of Systems Constitutional: Negative for chills, [...] Radha Teixeira APRN.DELMAR documented in this encounter [facility] 07-28-2022 Instructions Radha Teixeira APRN.CNP [...] 2 hours between. documented in this encounter [facility] 03-20-2022 Instructions Axel Rose APRN.CNP [...] even if the symptoms go away. 2. Jies-taj-[id number] pain medication may be taken or other [...] him or her). documented in this encounter [facility] 03-20-2022 History of Presen t [...] No external erythema edema noted. Mouth/Throat: Lips: [place]. Mouth: Mucous membranes are moist. Pharynx: Oropharynx [...] of amoxicillin. Patient will be transferred to [facility]. We will follow-up with the ENT [...] of care. This note was generated using Zapcoder software. It may contain errors in wording, punctuation, or spelling. Axel Rose APRN.DELMAR documented in this encounter [facility] 03-12-2022 Instructions Lisa Blanco APRN.DELMAR [...] F (38 C). documented in this encounter [facility] 03-12-2022 History of Presen t illness Narrative CC: Patient presents with: Eye Problem: left, red and swollen, started yesterday. Also has cough and sore throat x 1 day Woke up with left eye matted shut and has redness and itching. HPI: Dainne Ortega is a 27 year old female [...] STREP A MOLECULAR (POC) - negative 2. [place] eye disease of left eye - ICD9: 372.03, ICD10: H10.022 polytrim for a week Prescription instructions reviewed with patient as applicable. Potential red flag symptoms discussed with the patient. Reviewed appropriate action plan to take if red flag symptoms occur. Patient agreeable to treatment plan. Lisa Blanco APRN.DELMAR documented in this encounter [facility] documented in this encounter [facility] Diagnosis Acute otitis media, left- Primary Unspecified otitis media documented [facility] this encounter [facility] Diagnosis Acute otitis media, left- Primary Unspecified otitis media URI with cough and congestion documented in this encounter [facility] Summary Purpose Family History No [...] or prosecute any alcohol or drug abuse patient.[facility] the event this information is protected by the Federal Confidentiality of Alcohol and Drug Abuse Patient Records regulations: The Federal rules restrict any use of the information to criminally investigate or prosecute any alcohol or drug abuse patient.[facility] the event this information is protected by the Federal Confidentiality of Alcohol and Drug Abuse Patient Records regulations: The Federal rules restrict any use of the information to criminally investigate or prosecute any alcohol or drug abuse patient.[facility] Reason for Visit (unrecogniz ed section and content) Reason Comments Ear Pain L ear pain, SIMMONS, coug h, ST x9 days, seen 7/4 Reason Comments Cough Pt reported nasal co ngestion, Simmons, bilateral ear pain, decreased hearing x7 days. INFORMATION SOURCE (unrecogn ized section and content) DATE CREATED AUTHOR AUTHOR'S ORGANIZ ATION 09/27/2023 [facility] FOR RECORDS PERTAINING TO PATIENTS [...] BE BASED ON THE PRIMARY CLINICAL RECORDS. [employer] [facility]. provides no warranty or guarantee of the accuracy or completeness of information in this document.
== END | disposition home or self-care (01) ==
LOC: US 13:28
PROVIDERS: Referring Provider Obstetrics & Gynecology; Visit Provider Obstetrics & Gynecology
DX: O28.8 Other abnormal findings on antenatal screening of mother (principal); Z3A.00 Weeks of gestation of pregnancy not specified
CPT/HCPCS: 76819